=== PATIENT | male | born 1950 | race Caucasian/White ===

== ENCOUNTER 2016-10-03 00:40 | Emergency (ER) | payer BC, OTHER ==
[~2016-10-03] VITALS: Ht 167.6 cm; Wt 63.0 kg
[2016-10-03 02:02] VITALS: BP 118/76
== END 2016-10-03 02:44 | disposition home or self-care (01) ==
LOC: ED 02:38
DX: S49.91XA Unspecified injury of right shoulder and upper arm, initial encounter (principal); F10.120 Alcohol abuse with intoxication, uncomplicated; Y92.89 Other specified places as the place of occurrence of the external cause; Y93.89 Activity, other specified; Y99.8 Other external cause status; W19.XXXA Unspecified fall, initial encounter
CPT/HCPCS: 70450; 99284

== ENCOUNTER 2016-11-28 08:36 | Emergency (ER) | payer OTHER ==
[~2016-11-28] VITALS: Ht 167.6 cm; Wt 60.3 kg
[2016-11-28 08:38] VITALS: BP 102/65
[2016-11-28] MEDS ORDERED: FAMOTIDINE 20 MG TABLET PO ONE (10:00)
[2016-11-28] MEDS ORDERED: PERMETHRIN CRM 5%, 60GM TP ONE (10:00)
[2016-11-28] MEDS ORDERED: FAMOTIDINE 20 MG TABLET ONE (10:08)
[2016-11-28] MEDS ORDERED: PERMETHRIN CRM 5%, 60GM ONE (10:11)
== END 2016-11-28 11:27 | disposition home or self-care (01) ==
LOC: ED 09:15
DX: R21 Rash and other nonspecific skin eruption (principal); L03.90 Cellulitis, unspecified; Z59.0 Homelessness
CPT/HCPCS: 99284; Q0177

== ENCOUNTER 2016-11-30 22:44 | Emergency (ER) | payer OTHER ==
[~2016-11-30] VITALS: Ht 167.6 cm; Wt 70.0 kg
[2016-11-30] MEDS ORDERED: LIDOCAINE 1%, 20ML SQ ONE (23:00)
[2016-11-30] MEDS ORDERED: DIPH,PERTUSS(ACELL),TET VAC/PF 0.5 ML IM-VACC ONE ×2 (23:00→23:10)
[2016-11-30] MEDS ORDERED: LIDOCAINE 1%, 20ML ONE (23:10)
[2016-12-01 03:00] VITALS: BP 121/82
== END 2016-12-01 03:02 | disposition home or self-care (01) ==
LOC: ED 23:19
DX: S12.301A Unspecified nondisplaced fracture of fourth cervical vertebra, initial encounter for closed fracture (principal); S01.91XA Laceration without foreign body of unspecified part of head, initial encounter; F10.129 Alcohol abuse with intoxication, unspecified; Z87.891 Personal history of nicotine dependence; W01.0XXA Fall on same level from slipping, tripping and stumbling without subsequent striking against object, initial encounter; Y93.01 Activity, walking, marching and hiking; Y92.89 Other specified places as the place of occurrence of the external cause; Y99.8 Other external cause status
CPT/HCPCS: 12014; 70450; 72125; 90471; 90715

== ENCOUNTER 2016-12-04 19:16 | Inpatient (IN) | payer BC, MEDICARE, OTHER ==
[~2016-12-04] VITALS: Ht 167.6 cm; Wt 57.8 kg
[2016-12-04] MEDS ORDERED: CEPH-368 PO (19:35)
[2016-12-04] MEDS ORDERED: SODIUM CHLORIDE FLUSH 10ML SYR IVF ONE (20:00)
[2016-12-04] MEDS ORDERED: CEFAZOLIN PMX 1GM/50ML 50 ML IV ONE (20:00)
[2016-12-04] MEDS ORDERED: DIPHENHYDRAMINE 50 MG/ML, 1ML IVPush ONE (20:00)
[2016-12-04 20:44] LABS: HEMATOCRIT 26.7 % (39.2-51.8); HEMOGLOBIN 8.7 g/dL (13.7-18.0); WHITE BLOOD COUNT 11.1 x10^3/uL (3.4-10)
[2016-12-04 20:56] LABS: ASPARTATE AMINO TRANSFERASE 11 U/L (15-37); BLOOD UREA NITROGEN 10 mg/dL (7-18)
[2016-12-04] MEDS ORDERED: DIPHENHYDRAMINE 50 MG/ML, 1ML ONE (21:03)
[2016-12-04] MEDS ORDERED: DIPH,PERTUSS(ACELL),TET VAC/PF 0.5 ML IM-VACC ONE (21:03)
[2016-12-04] MEDS ORDERED: CEFAZOLIN PMX 1GM/50ML 50 ML ONE (21:03)
[2016-12-04] MEDS: DIPH,PERTUSS(ACELL),TET VAC/PF 0.5 ML IM-VACC ONE ×2 (21:16→21:19)
[2016-12-04] MEDS ORDERED: ENALAPRILAT 1.25 MG/ML, 2ML IVPush PRN (22:30)
[2016-12-04] MEDS ORDERED: TEMAZEPAM 15 MG CAPSULE PO PRN (22:30)
[2016-12-04] MEDS ORDERED: ONDANSETRON 2MG/ML, 2ML IVPush PRN (22:30)
[2016-12-04] MEDS ORDERED: ACETAMINOPHEN 325 MG TABLET PO PRN (22:30)
[2016-12-04] MEDS ORDERED: CEFAZOLIN 1,000 MG IM SCH (22:30)
[2016-12-04 23:15] VITALS: BP 145/78
[2016-12-05 02:00] VITALS: BP 112/70
[2016-12-05] MEDS: HEPARIN 5,000 UNITS/ML, 1ML SQ SCH ×3 (02:13→18:22)
[2016-12-05] MEDS: CEFAZOLIN PMX 1GM/50ML 50 ML IV SCH ×3 (02:49→19:47)
[2016-12-05 05:45] LABS: HEMATOCRIT 25.6 % (39.2-51.8); HEMOGLOBIN 8.3 g/dL (13.7-18.0); WHITE BLOOD COUNT 9.3 x10^3/uL (3.4-10)
[2016-12-05 05:46] LABS: BLOOD UREA NITROGEN 7 mg/dL (7-18)
[2016-12-05] MEDS ORDERED: CEFAZOLIN 1,000 MG IVPB SCH (06:30)
[2016-12-05] MEDS ORDERED: CEFAZOLIN 1,000 MG IV SCH (06:30)
[2016-12-05 08:16] VITALS: BP 116/69
[2016-12-05] MEDS: DIPHENHYDRAMINE 25 MG CAPSULE PO PRN ×2 (10:24→21:15)
[2016-12-05 12:10] VITALS: BP 126/70
[2016-12-05 20:04] VITALS: BP 98/60
[2016-12-05] MEDS ORDERED: ONDANSETRON 2MG/ML, 2ML IVPush PRN (22:00)
[2016-12-05] MEDS ORDERED: ENALAPRILAT 1.25 MG/ML, 2ML IVPush PRN (22:00)
[2016-12-05] MEDS ORDERED: ACETAMINOPHEN 325 MG TABLET PO PRN (22:00)
[2016-12-06] MEDS: CEFAZOLIN PMX 1GM/50ML 50 ML IV SCH ×3 (03:04→20:22)
[2016-12-06] MEDS: HEPARIN 5,000 UNITS/ML, 1ML SQ SCH ×3 (03:05→20:22)
[2016-12-06 03:10] VITALS: BP 104/59
[2016-12-06 07:55] VITALS: BP 116/70
[2016-12-06] MEDS: DIPHENHYDRAMINE 25 MG CAPSULE PO PRN ×2 (10:44→21:50)
[2016-12-06 14:27] VITALS: BP 116/72
[2016-12-06 19:01] VITALS: BP 112/69
[2016-12-06] MEDS: FAMOTIDINE 20 MG TABLET PO SCH (20:22)
[2016-12-07] MEDS: CEFAZOLIN PMX 1GM/50ML 50 ML IV SCH ×3 (03:34→19:47)
[2016-12-07 03:54] VITALS: BP 103/61
[2016-12-07] MEDS: HEPARIN 5,000 UNITS/ML, 1ML SQ SCH ×3 (04:30→20:01)
[2016-12-07 07:48] VITALS: BP 124/77
[2016-12-07] MEDS: FAMOTIDINE 20 MG TABLET PO SCH ×2 (08:38→20:01)
[2016-12-07] MEDS: DIPHENHYDRAMINE 25 MG CAPSULE PO PRN ×2 (08:38→20:01)
[2016-12-07 13:22] VITALS: BP 117/70
[2016-12-07 19:58] VITALS: BP 118/71
[2016-12-08 01:29] VITALS: BP 121/71
[2016-12-08] MEDS: CEFAZOLIN PMX 1GM/50ML 50 ML IV SCH ×3 (03:18→18:28)
[2016-12-08] MEDS: HEPARIN 5,000 UNITS/ML, 1ML SQ SCH ×3 (05:24→19:49)
[2016-12-08 07:49] VITALS: BP 123/72
[2016-12-08] MEDS: FAMOTIDINE 20 MG TABLET PO SCH ×2 (08:58→19:49)
[2016-12-08] MEDS: DIPHENHYDRAMINE 25 MG CAPSULE PO PRN ×2 (12:29→19:48)
[2016-12-08 13:51] VITALS: BP 137/88
[2016-12-08 20:56] VITALS: BP 118/74
[2016-12-09] MEDS: CEFAZOLIN PMX 1GM/50ML 50 ML IV SCH ×3 (02:31→18:11)
[2016-12-09 02:41] VITALS: BP 132/74
[2016-12-09] MEDS: DIPHENHYDRAMINE 25 MG CAPSULE PO PRN ×2 (04:07→18:10)
[2016-12-09] MEDS: HEPARIN 5,000 UNITS/ML, 1ML SQ SCH ×3 (04:07→19:17)
[2016-12-09] MEDS: FAMOTIDINE 20 MG TABLET PO SCH ×2 (09:44→19:17)
[2016-12-09 10:49] VITALS: BP 120/70
[2016-12-09 15:18] VITALS: BP 135/79
[2016-12-09 19:36] VITALS: BP 129/83
[2016-12-10] MEDS: DIPHENHYDRAMINE 25 MG CAPSULE PO PRN ×2 (00:19→20:04)
[2016-12-10 01:23] VITALS: BP 146/71
[2016-12-10] MEDS: CEFAZOLIN PMX 1GM/50ML 50 ML IV SCH ×3 (02:53→20:04)
[2016-12-10] MEDS: HEPARIN 5,000 UNITS/ML, 1ML SQ SCH ×3 (04:40→20:04)
[2016-12-10 06:38] VITALS: BP 128/72
[2016-12-10] MEDS: FAMOTIDINE 20 MG TABLET PO SCH ×2 (09:19→20:04)
[2016-12-10 16:00] VITALS: BP 134/79
[2016-12-10 19:16] VITALS: BP 107/65
[2016-12-11 01:03] VITALS: BP 115/66
[2016-12-11] MEDS: CEFAZOLIN PMX 1GM/50ML 50 ML IV SCH ×3 (03:09→19:43)
[2016-12-11] MEDS: HEPARIN 5,000 UNITS/ML, 1ML SQ SCH ×3 (04:37→19:43)
[2016-12-11] MEDS: DIPHENHYDRAMINE 25 MG CAPSULE PO PRN ×3 (05:36→19:43)
[2016-12-11 08:00] VITALS: BP 126/71
[2016-12-11] MEDS: FAMOTIDINE 20 MG TABLET PO SCH ×2 (08:53→19:43)
[2016-12-11 14:50] VITALS: BP 118/69
[2016-12-11 21:07] VITALS: BP 109/70
[2016-12-12 01:31] VITALS: BP 119/64
[2016-12-12] MEDS: CEFAZOLIN PMX 1GM/50ML 50 ML IV SCH ×3 (03:22→19:28)
[2016-12-12] MEDS: HEPARIN 5,000 UNITS/ML, 1ML SQ SCH ×3 (03:22→19:29)
[2016-12-12] MEDS: DIPHENHYDRAMINE 25 MG CAPSULE PO PRN (03:22)
[2016-12-12 06:03] LABS: HEMATOCRIT 28.8 % (39.2-51.8); HEMOGLOBIN 9.3 g/dL (13.7-18.0); WHITE BLOOD COUNT 9.8 x10^3/uL (3.4-10)
[2016-12-12 06:25] VITALS: BP 110/68
[2016-12-12] MEDS: FAMOTIDINE 20 MG TABLET PO SCH ×2 (09:00→19:28)
[2016-12-12 14:30] VITALS: BP 117/73
[2016-12-12] MEDS ORDERED: ONDANSETRON 2MG/ML, 2ML IVPush PRN (19:00)
[2016-12-12] MEDS ORDERED: ENALAPRILAT 1.25 MG/ML, 2ML IVPush PRN (19:00)
[2016-12-12 20:23] VITALS: BP 106/63
[2016-12-12] MEDS: TEMAZEPAM 15 MG CAPSULE PO PRN (23:21)
[2016-12-12] MEDS: ACETAMINOPHEN 325 MG TABLET PO PRN (23:21)
[2016-12-13 03:36] VITALS: BP 113/67
[2016-12-13] MEDS: HEPARIN 5,000 UNITS/ML, 1ML SQ SCH ×3 (03:36→19:53)
[2016-12-13] MEDS: CEFAZOLIN PMX 1GM/50ML 50 ML IV SCH ×3 (03:36→18:46)
[2016-12-13 07:48] VITALS: BP 123/73
[2016-12-13] MEDS: DIPHENHYDRAMINE 25 MG CAPSULE PO PRN ×2 (10:01→19:51)
[2016-12-13] MEDS: FAMOTIDINE 20 MG TABLET PO SCH ×2 (10:01→19:52)
[2016-12-13 15:13] VITALS: BP 120/79
[2016-12-13] MEDS ORDERED: POLYETHYLENE GLYCOL 17 GM PACKET PO PRN (15:30)
[2016-12-13] MEDS ORDERED: BISACODYL 10 MG SUPP PR PRN (15:30)
[2016-12-13] MEDS: DOCUSATE 100 MG CAPSULE PO PRN (16:05)
[2016-12-13 19:40] VITALS: BP 110/72
[2016-12-13] MEDS: TEMAZEPAM 15 MG CAPSULE PO PRN (19:52)
[2016-12-14 01:00] VITALS: BP 121/73
[2016-12-14] MEDS: CEFAZOLIN PMX 1GM/50ML 50 ML IV SCH ×3 (02:37→18:42)
[2016-12-14] MEDS: DOCUSATE 100 MG CAPSULE PO PRN (02:37)
[2016-12-14] MEDS: HEPARIN 5,000 UNITS/ML, 1ML SQ SCH ×3 (06:21→21:46)
[2016-12-14 07:54] VITALS: BP 107/69
[2016-12-14] MEDS: DIPHENHYDRAMINE 25 MG CAPSULE PO PRN ×2 (10:32→17:24)
[2016-12-14] MEDS: FAMOTIDINE 20 MG TABLET PO SCH ×2 (10:34→21:45)
[2016-12-14 15:10] VITALS: BP 121/71
[2016-12-14] MEDS: ACETAMINOPHEN 325 MG TABLET PO PRN (17:24)
[2016-12-14 19:36] VITALS: BP 107/71
[2016-12-15 01:34] VITALS: BP 123/71
[2016-12-15] MEDS: DIPHENHYDRAMINE 25 MG CAPSULE PO PRN (02:01)
[2016-12-15] MEDS: CEFAZOLIN PMX 1GM/50ML 50 ML IV SCH ×3 (03:02→19:37)
[2016-12-15] MEDS: ACETAMINOPHEN 325 MG TABLET PO PRN (04:15)
[2016-12-15] MEDS: HEPARIN 5,000 UNITS/ML, 1ML SQ SCH ×3 (05:36→19:38)
[2016-12-15 05:43] LABS: HEMATOCRIT 27.2 % (39.2-51.8); HEMOGLOBIN 8.8 g/dL (13.7-18.0)
[2016-12-15 08:00] VITALS: BP 132/86
[2016-12-15] MEDS: FAMOTIDINE 20 MG TABLET PO SCH ×2 (11:14→19:37)
[2016-12-15 14:00] VITALS: BP 115/72
[2016-12-15 19:35] VITALS: BP 99/54
[2016-12-16 01:29] VITALS: BP 99/54
[2016-12-16] MEDS: CEFAZOLIN PMX 1GM/50ML 50 ML IV SCH (03:27)
[2016-12-16] MEDS: HEPARIN 5,000 UNITS/ML, 1ML SQ SCH (06:00)
[2016-12-16 07:30] VITALS: BP 121/76
[2016-12-16] MEDS: FAMOTIDINE 20 MG TABLET PO SCH (09:07)
[2016-12-16] MEDS ORDERED: POLY17PO5 PO (09:42)
[2016-12-16] MEDS ORDERED: DIPH25CA61 PO (09:42)
== END 2016-12-16 14:48 | disposition home or self-care (01) | DRG 602 ==
LOC: ED 19:38 → EDIP 22:33 → 3NE 23:33
PROVIDERS: ADMIT Internal Medicine; ATTEND Family Medicine
DX: L03.115 Cellulitis of right lower limb (principal); E43 Unspecified severe protein-calorie malnutrition; R62.7 Adult failure to thrive; D50.9 Iron deficiency anemia, unspecified; F10.20 Alcohol dependence, uncomplicated; D47.3 Essential (hemorrhagic) thrombocythemia; L03.116 Cellulitis of left lower limb; L30.8 Other specified dermatitis; Z59.0 Homelessness; Z68.20 Body mass index [BMI] 20.0-20.9, adult
CPT/HCPCS: 36415; 80048; 80053; 82607; 82746; 83540; 83550; 83605; 83735; 85025; 85045; 85651; 86850; 86900; 87040; 90715; 99285; J0690; J1644; J1200; J7512; Q0163

== ENCOUNTER 2017-01-24 19:30 | Emergency (ER) | payer MEDICARE ==
[~2017-01-24] VITALS: Ht 162.6 cm; Wt 65.0 kg
[~2017-01-24 19:30] MED LIST: CEPH-368 PO; DIPH25CA61 PO; POLY17PO5 PO
[2017-01-24] MEDS ORDERED: LIDOCAINE 1%, 20ML ONE (19:49)
[2017-01-24] MEDS ORDERED: DIPH,PERTUSS(ACELL),TET VAC/PF 0.5 ML IM-VACC ONE ×2 (19:49→20:00)
[2017-01-24] MEDS ORDERED: LIDOCAINE 1%, 20ML INFIL ONE (20:00)
[2017-01-24] MEDS ORDERED: BACITRACIN ZINC OINT 500U/GM, 0.9 GM ONE (21:53)
[2017-01-24 22:04] VITALS: BP 122/78
== END 2017-01-24 22:07 | disposition home or self-care (01) ==
LOC: ED 20:59
DX: S01.81XA Laceration without foreign body of other part of head, initial encounter (principal); Z59.0 Homelessness; Z87.891 Personal history of nicotine dependence; W01.0XXA Fall on same level from slipping, tripping and stumbling without subsequent striking against object, initial encounter; Y93.89 Activity, other specified; Y92.89 Other specified places as the place of occurrence of the external cause; Y99.8 Other external cause status
CPT/HCPCS: 13132; 70450; 90471; 90715

== ENCOUNTER 2017-02-02 08:03 | Inpatient (IN) | payer MEDICARE, OTHER ==
[~2017-02-02] VITALS: Ht 167.6 cm; Wt 52.7 kg
[2017-02-02] MEDS ORDERED: SODIUM CHLORIDE 0.9% 1,000 ML IV ONE (08:27)
[2017-02-02] MEDS ORDERED: ALBUTEROL/IPRATROPIUM 2.5MG/0.5MG, 3 ML NPPB ONE (08:30)
[2017-02-02] MEDS ORDERED: SODIUM CHLORIDE 0.9% 1,000ML IVBOLUS ONE (08:30)
[2017-02-02] MEDS ORDERED: ALBUTEROL/IPRATROPIUM 2.5MG/0.5MG, 3 ML ONE (08:54)
[2017-02-02 09:11] LABS: HEMATOCRIT 27.8 % (39.2-51.8); WHITE BLOOD COUNT 23.6 x10^3/uL (3.4-10)
[2017-02-02 09:28] LABS: BLOOD UREA NITROGEN 22 mg/dL (7-18)
[2017-02-02 10:21] LABS: DIFF TOTAL CELLS COUNTED 100 CELL DIFF
[2017-02-02 10:26] LABS: ANISOCYTOSIS 1+; MICROCYTOSIS 1+
[2017-02-02 10:30] LABS: IS PT STATUS REG ER OR PRE ER? YES
[2017-02-02] MEDS ORDERED: VANCOMYCIN PER PHARMACY MC ONE (10:30)
[2017-02-02] MEDS ORDERED: CEFTRIAXONE PMX 1GM/50ML 50 ML IV ONE (10:30)
[2017-02-02] MEDS ORDERED: VANCOMYCIN PMX 1GM/200ML 200 ML IVPB ONE (10:30)
[2017-02-02] MEDS ORDERED: CEFTRIAXONE PMX 1GM/50ML 50 ML ONE (10:31)
[2017-02-02 10:33] LABS: VERIFY COUNTS? YES
[2017-02-02] MEDS ORDERED: SODIUM CHLORIDE 0.9%, 500ML IVBOLUS ONE (11:00)
[2017-02-02 11:45] VITALS: BP 126/86
[2017-02-02] MEDS ORDERED: ENALAPRILAT 1.25 MG/ML, 2ML IVPush PRN (14:00)
[2017-02-02] MEDS ORDERED: LABETALOL 5MG/ML, 20ML IVPush PRN (14:00)
[2017-02-02] MEDS ORDERED: DOCUSATE 100 MG CAPSULE PO PRN (14:00)
[2017-02-02] MEDS ORDERED: ONDANSETRON 2MG/ML, 2ML IVPush PRN (14:00)
[2017-02-02] MEDS ORDERED: BISACODYL 10 MG SUPP PR PRN (14:00)
[2017-02-02] MEDS ORDERED: POLYETHYLENE GLYCOL 17 GM PACKET PO PRN (14:00)
[2017-02-02] MEDS ORDERED: VANCOMYCIN PER PHARMACY MC PRN (14:30)
[2017-02-02] MEDS ORDERED: LORazepam 1MG TABLET PO PRN (15:00)
[2017-02-02] MEDS ORDERED: POTASSIUM CHLORIDE 20 MEQ PACKET PO ONE (15:00)
[2017-02-02] MEDS ORDERED: PHARMACOKINETIC CONSULTATION MC ONE (15:00)
[2017-02-02] MEDS ORDERED: PHARMACOKINETIC MONITORING MC PRN (15:00)
[2017-02-02] MEDS: NS + 20MEQ KCL 1,000 ML IV SCH (15:40)
[2017-02-02] MEDS: PIPERACILLIN/TAZO/PMX 4.5GM 100 ML IV SCH ×2 (15:40→21:46)
[2017-02-02] MEDS: ENOXAPARIN 40 MG/0.4 ML SQ SCH (17:59)
[2017-02-02] MEDS: ALBUTEROL/IPRATROPIUM 2.5MG/0.5MG, 3 ML NPPB SCH (19:45)
[2017-02-02 21:05] VITALS: BP 100/59
[2017-02-02] MEDS: PIPERONYL BUTOXIDE/PYRETHRINS SHAMPOO TP SCH (22:54)
[2017-02-03 04:05] VITALS: BP 91/54
[2017-02-03] MEDS: PIPERACILLIN/TAZO/PMX 4.5GM 100 ML IV SCH ×4 (04:32→22:50)
[2017-02-03] MEDS: NS + 20MEQ KCL 1,000 ML IV SCH ×2 (04:32→19:39)
[2017-02-03] MEDS: DIPHENHYDRAMINE 25 MG CAPSULE PO PRN (04:35)
[2017-02-03 05:26] LABS: HEMOGLOBIN 7.4 g/dL (13.7-18.0); WHITE BLOOD COUNT 19.6 x10^3/uL (3.4-10)
[2017-02-03 05:44] LABS: ASPARTATE AMINO TRANSFERASE 30 U/L (15-37); BLOOD UREA NITROGEN 18 mg/dL (7-18)
[2017-02-03] MEDS: ASPIRIN 325 MG TABLET PO SCH (06:06)
[2017-02-03] MEDS ORDERED: VANCOMYCIN 1,300 MG in SODIUM CHLORIDE 0.9% 250 ML IV SCH (07:00)
[2017-02-03] MEDS: ALBUTEROL/IPRATROPIUM 2.5MG/0.5MG, 3 ML NPPB SCH ×4 (07:00→18:53)
[2017-02-03 09:15] VITALS: BP 95/61
[2017-02-03] MEDS: ACETAMINOPHEN 325 MG TABLET PO PRN (10:04)
[2017-02-03] MEDS: ENOXAPARIN 40 MG/0.4 ML SQ SCH (14:00)
[2017-02-03 14:40] VITALS: BP 91/69
[2017-02-03 16:09] LABS: HEMATOCRIT 23.4 % (39.2-51.8); HEMOGLOBIN 7.4 g/dL (13.7-18.0)
[2017-02-03 19:24] VITALS: BP 93/58
[2017-02-03 21:07] LABS: HEMATOCRIT 21.8 % (39.2-51.8)
[2017-02-04] VITALS (10 sets, daily range): BP systolic 90–117; BP diastolic 60–67
[2017-02-04 02:29] LABS: DAU SCREEN DISCLAIMER
[2017-02-04] MEDS: HYDROcodone/APAP 5/325 TABLET PO PRN ×2 (02:30→09:54)
[2017-02-04] MEDS: PIPERACILLIN/TAZO/PMX 4.5GM 100 ML IV SCH ×4 (04:57→23:06)
[2017-02-04] MEDS: ASPIRIN 325 MG TABLET PO SCH (04:59)
[2017-02-04] MEDS: ALBUTEROL/IPRATROPIUM 2.5MG/0.5MG, 3 ML NPPB SCH ×4 (07:00→19:10)
[2017-02-04 07:08] LABS: HEMATOCRIT 28.5 % (39.2-51.8); HEMOGLOBIN 9.3 g/dL (13.7-18.0); WHITE BLOOD COUNT 15.9 x10^3/uL (3.4-10)
[2017-02-04 07:10] LABS: BLOOD UREA NITROGEN 10 mg/dL (7-18)
[2017-02-04] MEDS: THIAMINE 100MG TABLET PO SCH (08:54)
[2017-02-04] MEDS: FOLIC ACID 1 MG TABLET PO SCH (08:54)
[2017-02-04] MEDS: VANCOMYCIN 1,200 MG in SODIUM CHLORIDE 0.9% 250 ML IV SCH (09:05)
[2017-02-04 11:10] LABS: HEMATOCRIT 30.9 % (39.2-51.8); HEMOGLOBIN 9.9 g/dL (13.7-18.0)
[2017-02-04] MEDS: NS + 20MEQ KCL 1,000 ML IV SCH (15:46)
[2017-02-04 16:06] LABS: HEMATOCRIT 29.8 % (39.2-51.8); HEMOGLOBIN 9.6 g/dL (13.7-18.0)
[2017-02-04] MEDS ORDERED: IRON DEXTRAN COMPLEX 1,300 MG in SODIUM CHLORIDE 0.9% 250 ML IV ONE ×3 (17:30→21:00)
[2017-02-04] MEDS ORDERED: IRON DEXTRAN COMPLEX 25 MG in SODIUM CHLORIDE 0.9% 50 ML IV ONE (17:30)
[2017-02-04] MEDS ORDERED: IRON DEXTRAN IV PER PHARMACY IV PRN (17:30)
[2017-02-04] MEDS: ACETAMINOPHEN 325 MG TABLET PO PRN (20:53)
[2017-02-04] MEDS ORDERED: EPINEPHRINE 1 MG/ML, 1ML SQ PRN (21:00)
[2017-02-04 21:44] LABS: HEMATOCRIT 29.7 % (39.2-51.8); HEMOGLOBIN 9.4 g/dL (13.7-18.0)
[2017-02-05 02:43] VITALS: BP 110/64
[2017-02-05 04:30] LABS: HEMATOCRIT 28.2 % (39.2-51.8); HEMOGLOBIN 9.2 g/dL (13.7-18.0); WHITE BLOOD COUNT 13.3 x10^3/uL (3.4-10)
[2017-02-05 04:40] LABS: BLOOD UREA NITROGEN 7 mg/dL (7-18)
[2017-02-05] MEDS: PIPERACILLIN/TAZO/PMX 4.5GM 100 ML IV SCH ×4 (06:16→22:53)
[2017-02-05] MEDS: ASPIRIN 325 MG TABLET PO SCH (06:16)
[2017-02-05 06:45] VITALS: BP 126/81
[2017-02-05] MEDS: ALBUTEROL/IPRATROPIUM 2.5MG/0.5MG, 3 ML NPPB SCH ×4 (07:04→19:21)
[2017-02-05] MEDS: FOLIC ACID 1 MG TABLET PO SCH (09:00)
[2017-02-05] MEDS: THIAMINE 100MG TABLET PO SCH (09:00)
[2017-02-05 09:06] VITALS: BP 115/67
[2017-02-05] MEDS: VANCOMYCIN 1,200 MG in SODIUM CHLORIDE 0.9% 250 ML IV SCH (09:10)
[2017-02-05] MEDS: NS + 20MEQ KCL 1,000 ML IV SCH ×2 (10:17→19:55)
[2017-02-05 11:50] VITALS: BP 127/78
[2017-02-05 12:21] VITALS: BP 126/75
[2017-02-05 16:42] LABS: OCCBLD OBC PASS
[2017-02-05 19:45] VITALS: BP 118/70
[2017-02-05] MEDS: DIPHENHYDRAMINE 25 MG CAPSULE PO PRN (21:38)
[2017-02-06 05:09] LABS: HEMATOCRIT 28.6 % (39.2-51.8); HEMOGLOBIN 9.3 g/dL (13.7-18.0); WHITE BLOOD COUNT 11.2 x10^3/uL (3.4-10)
[2017-02-06] MEDS: ASPIRIN 325 MG TABLET PO SCH (05:09)
[2017-02-06] MEDS: NS + 20MEQ KCL 1,000 ML IV SCH (05:10)
[2017-02-06] MEDS: PIPERACILLIN/TAZO/PMX 4.5GM 100 ML IV SCH ×4 (05:10→23:13)
[2017-02-06 05:15] VITALS: BP 122/80
[2017-02-06 05:20] LABS: BLOOD UREA NITROGEN 4 mg/dL (7-18)
[2017-02-06 06:46] VITALS: BP 130/75
[2017-02-06] MEDS: SODIUM BICARBONATE 4.2%, 5ML NPPB SCH ×3 (06:53→14:47)
[2017-02-06] MEDS: ALBUTEROL/IPRATROPIUM 2.5MG/0.5MG, 3 ML NPPB SCH ×4 (07:00→18:48)
[2017-02-06] MEDS ORDERED: SODIUM BICARBONATE 4.2%, 5ML NPPB SCH (07:30)
[2017-02-06] MEDS: THIAMINE 100MG TABLET PO SCH (08:52)
[2017-02-06] MEDS: VANCOMYCIN 1,200 MG in SODIUM CHLORIDE 0.9% 250 ML IV SCH ×2 (08:52→23:11)
[2017-02-06] MEDS: FOLIC ACID 1 MG TABLET PO SCH (08:52)
[2017-02-06] MEDS: ENOXAPARIN 40 MG/0.4 ML SQ SCH (11:23)
[2017-02-06 12:22] VITALS: BP 133/76
[2017-02-06 19:08] VITALS: BP 123/73
[2017-02-06] MEDS ORDERED: ENALAPRILAT 1.25 MG/ML, 2ML IVPush PRN (20:30)
[2017-02-06] MEDS ORDERED: LABETALOL 5MG/ML, 20ML IVPush PRN (20:30)
[2017-02-06] MEDS ORDERED: ACETAMINOPHEN 325 MG TABLET PO PRN (21:00)
[2017-02-06] MEDS ORDERED: POLYETHYLENE GLYCOL 17 GM PACKET PO PRN (21:00)
[2017-02-06] MEDS ORDERED: DIPHENHYDRAMINE 25 MG CAPSULE PO PRN (21:00)
[2017-02-06] MEDS ORDERED: HYDROcodone/APAP 5/325 TABLET PO PRN (21:00)
[2017-02-06] MEDS ORDERED: DOCUSATE 100 MG CAPSULE PO PRN (21:00)
[2017-02-06] MEDS ORDERED: LORazepam 1MG TABLET PO PRN (21:00)
[2017-02-06] MEDS ORDERED: ONDANSETRON 2MG/ML, 2ML IVPush PRN (21:00)
[2017-02-06] MEDS ORDERED: BISACODYL 10 MG SUPP PR PRN (21:00)
[2017-02-07] MEDS: VANCOMYCIN 1,200 MG in SODIUM CHLORIDE 0.9% 250 ML IV SCH ×2 (00:24→17:57)
[2017-02-07 01:58] VITALS: BP 122/67
[2017-02-07] MEDS: ASPIRIN 325 MG TABLET PO SCH (05:19)
[2017-02-07] MEDS: PIPERACILLIN/TAZO/PMX 4.5GM 100 ML IV SCH ×4 (05:21→23:25)
[2017-02-07 05:29] LABS: BLOOD UREA NITROGEN 3 mg/dL (7-18)
[2017-02-07 05:32] LABS: HEMATOCRIT 28.8 % (39.2-51.8); HEMOGLOBIN 9.3 g/dL (13.7-18.0); WHITE BLOOD COUNT 8.5 x10^3/uL (3.4-10)
[2017-02-07] MEDS ORDERED: OMNIPAQUE 350 MG/ML, 75ML BOTTLE ONE (06:39)
[2017-02-07] MEDS: ALBUTEROL/IPRATROPIUM 2.5MG/0.5MG, 3 ML NPPB SCH ×4 (06:53→19:15)
[2017-02-07] MEDS: SODIUM BICARBONATE 4.2%, 5ML NPPB SCH ×2 (07:00→11:00)
[2017-02-07 07:06] VITALS: BP 134/80
[2017-02-07] MEDS: FOLIC ACID 1 MG TABLET PO SCH (08:52)
[2017-02-07] MEDS: THIAMINE 100MG TABLET PO SCH (08:52)
[2017-02-07] MEDS: ENOXAPARIN 40 MG/0.4 ML SQ SCH (10:35)
[2017-02-07] MEDS ORDERED: MIDAZOLAM 1 MG/ML, 5ML ONE (11:13)
[2017-02-07] MEDS ORDERED: FENTANYL PF 100 MCG/2ML ONE (11:59)
[2017-02-07] MEDS ORDERED: LIDOCAINE GEL 2%, 5ML ONE (12:00)
[2017-02-07] MEDS ORDERED: LIDOCAINE 2%, 20ML ONE (12:00)
[2017-02-07] MEDS ORDERED: LIDOCAINE 4% TOPICAL SOLUTION 50 ML ONE (12:00)
[2017-02-07] MEDS ORDERED: LIDOCAINE 1%, 20ML ONE (13:31)
[2017-02-07 19:33] VITALS: BP 111/69
[2017-02-07] MEDS: FAMOTIDINE 20 MG/2 ML IVPush SCH (23:25)
[2017-02-08 01:56] VITALS: BP 119/73
[2017-02-08 04:56] LABS: HEMATOCRIT 30.9 % (39.2-51.8); WHITE BLOOD COUNT 9.8 x10^3/uL (3.4-10)
[2017-02-08] MEDS: PIPERACILLIN/TAZO/PMX 4.5GM 100 ML IV SCH ×4 (04:59→23:30)
[2017-02-08] MEDS: ASPIRIN 325 MG TABLET PO SCH (04:59)
[2017-02-08 05:01] LABS: BLOOD UREA NITROGEN 4 mg/dL (7-18)
[2017-02-08 06:37] VITALS: BP 129/69
[2017-02-08] MEDS: ALBUTEROL/IPRATROPIUM 2.5MG/0.5MG, 3 ML NPPB SCH ×4 (07:20→20:15)
[2017-02-08] MEDS: THIAMINE 100MG TABLET PO SCH (09:00)
[2017-02-08] MEDS: FOLIC ACID 1 MG TABLET PO SCH (09:00)
[2017-02-08] MEDS: ENOXAPARIN 40 MG/0.4 ML SQ SCH (09:56)
[2017-02-08] MEDS: FAMOTIDINE 20 MG/2 ML IVPush SCH ×2 (10:07→21:55)
[2017-02-08] MEDS: VANCOMYCIN 1,200 MG in SODIUM CHLORIDE 0.9% 250 ML IV SCH (12:13)
[2017-02-08 13:51] VITALS: BP 114/74
[2017-02-08 19:49] VITALS: BP 128/80
[2017-02-09 02:05] VITALS: BP 127/67
[2017-02-09] MEDS: PIPERACILLIN/TAZO/PMX 4.5GM 100 ML IV SCH ×4 (05:08→23:26)
[2017-02-09] MEDS: VANCOMYCIN 1,200 MG in SODIUM CHLORIDE 0.9% 250 ML IV SCH (05:54)
[2017-02-09 06:45] VITALS: BP 130/72
[2017-02-09] MEDS: ALBUTEROL/IPRATROPIUM 2.5MG/0.5MG, 3 ML NPPB SCH ×4 (08:38→17:53)
[2017-02-09] MEDS: FAMOTIDINE 20 MG/2 ML IVPush SCH ×2 (10:06→21:39)
[2017-02-09] MEDS: ASPIRIN 325 MG TABLET PO SCH (10:07)
[2017-02-09] MEDS: THIAMINE 100MG TABLET PO SCH (10:07)
[2017-02-09] MEDS: FOLIC ACID 1 MG TABLET PO SCH (10:07)
[2017-02-09 13:49] VITALS: BP 108/71
[2017-02-09] MEDS: PIPERONYL BUTOXIDE/PYRETHRINS SHAMPOO TP SCH (18:57)
[2017-02-09 18:58] VITALS: BP 112/74
[2017-02-10] MEDS: VANCOMYCIN 1,200 MG in SODIUM CHLORIDE 0.9% 250 ML IV SCH (00:05)
[2017-02-10 01:08] VITALS: BP 107/68
[2017-02-10] MEDS: PIPERACILLIN/TAZO/PMX 4.5GM 100 ML IV SCH ×4 (05:32→23:30)
[2017-02-10] MEDS: ASPIRIN 325 MG TABLET PO SCH (05:48)
[2017-02-10] MEDS: ALBUTEROL/IPRATROPIUM 2.5MG/0.5MG, 3 ML NPPB SCH ×4 (07:00→19:05)
[2017-02-10] MEDS: THIAMINE 100MG TABLET PO SCH (08:12)
[2017-02-10] MEDS: FOLIC ACID 1 MG TABLET PO SCH (08:12)
[2017-02-10] MEDS: FAMOTIDINE 20 MG/2 ML IVPush SCH ×2 (08:12→23:00)
[2017-02-10 08:33] VITALS: BP 109/70
[2017-02-10 12:45] VITALS: BP 121/74
[2017-02-10] MEDS ORDERED: VANCOMYCIN PMX 1GM/200ML 200 ML IV ONE (18:00)
[2017-02-10 20:00] VITALS: BP 106/71
[2017-02-11 01:27] VITALS: BP 124/78
[2017-02-11] MEDS: PIPERACILLIN/TAZO/PMX 4.5GM 100 ML IV SCH ×4 (05:23→23:34)
[2017-02-11] MEDS: ASPIRIN 325 MG TABLET PO SCH (05:23)
[2017-02-11 06:34] VITALS: BP 116/67
[2017-02-11] MEDS: ALBUTEROL/IPRATROPIUM 2.5MG/0.5MG, 3 ML NPPB SCH ×4 (07:00→19:15)
[2017-02-11] MEDS: FOLIC ACID 1 MG TABLET PO SCH (09:50)
[2017-02-11] MEDS: FAMOTIDINE 20 MG/2 ML IVPush SCH ×2 (09:50→19:46)
[2017-02-11] MEDS: THIAMINE 100MG TABLET PO SCH (09:50)
[2017-02-11 12:32] VITALS: BP 114/71
[2017-02-11] MEDS: VANCOMYCIN PMX 1GM/200ML 200 ML IV SCH (18:27)
[2017-02-11 18:55] VITALS: BP 117/71
[2017-02-12 00:38] VITALS: BP 114/74
[2017-02-12] MEDS: PIPERACILLIN/TAZO/PMX 4.5GM 100 ML IV SCH ×4 (05:15→23:06)
[2017-02-12] MEDS: ASPIRIN 325 MG TABLET PO SCH (05:15)
[2017-02-12 05:44] LABS: HEMATOCRIT 33.3 % (39.2-51.8); HEMOGLOBIN 10.7 g/dL (13.7-18.0)
[2017-02-12 05:59] LABS: BLOOD UREA NITROGEN 4 mg/dL (7-18)
[2017-02-12] MEDS ORDERED: MAGNESIUM SULFATE PMX 2GM/50ML 50 ML IV ONE (06:30)
[2017-02-12] MEDS: ALBUTEROL/IPRATROPIUM 2.5MG/0.5MG, 3 ML NPPB SCH ×3 (06:50→18:36)
[2017-02-12 07:31] VITALS: BP 107/65
[2017-02-12] MEDS: FOLIC ACID 1 MG TABLET PO SCH (09:13)
[2017-02-12] MEDS: THIAMINE 100MG TABLET PO SCH (09:13)
[2017-02-12] MEDS: FAMOTIDINE 20 MG/2 ML IVPush SCH ×2 (09:14→19:48)
[2017-02-12 13:02] VITALS: BP 103/70
[2017-02-12] MEDS: VANCOMYCIN PMX 1GM/200ML 200 ML IV SCH (17:56)
[2017-02-12 19:52] VITALS: BP 101/60
[2017-02-13 01:23] VITALS: BP 106/61
[2017-02-13] MEDS: PIPERACILLIN/TAZO/PMX 4.5GM 100 ML IV SCH ×4 (05:22→23:19)
[2017-02-13] MEDS: ASPIRIN 325 MG TABLET PO SCH (05:22)
[2017-02-13 06:50] VITALS: BP 107/70
[2017-02-13] MEDS: ALBUTEROL/IPRATROPIUM 2.5MG/0.5MG, 3 ML NPPB SCH ×4 (06:55→19:34)
[2017-02-13] MEDS: FAMOTIDINE 20 MG/2 ML IVPush SCH ×2 (09:33→20:51)
[2017-02-13] MEDS: FOLIC ACID 1 MG TABLET PO SCH (09:33)
[2017-02-13] MEDS: THIAMINE 100MG TABLET PO SCH (09:33)
[2017-02-13] MEDS: VANCOMYCIN PMX 1GM/200ML 200 ML IV SCH (12:01)
[2017-02-13 12:55] VITALS: BP 109/76
[2017-02-13 18:33] VITALS: BP 102/68
[2017-02-13] MEDS ORDERED: DIPHENHYDRAMINE 25 MG CAPSULE PO PRN (20:00)
[2017-02-13] MEDS ORDERED: LABETALOL 5MG/ML, 20ML IVPush PRN (20:00)
[2017-02-13] MEDS ORDERED: LORazepam 1MG TABLET PO PRN (20:00)
[2017-02-13] MEDS ORDERED: ENALAPRILAT 1.25 MG/ML, 2ML IVPush PRN (20:00)
[2017-02-13] MEDS ORDERED: BISACODYL 10 MG SUPP PR PRN (20:00)
[2017-02-13] MEDS ORDERED: DOCUSATE 100 MG CAPSULE PO PRN (20:00)
[2017-02-13] MEDS ORDERED: ONDANSETRON 2MG/ML, 2ML IVPush PRN (20:00)
[2017-02-13] MEDS ORDERED: ACETAMINOPHEN 325 MG TABLET PO PRN (20:00)
[2017-02-13] MEDS ORDERED: HYDROcodone/APAP 5/325 TABLET PO PRN (20:00)
[2017-02-14 00:42] VITALS: BP 110/74
[2017-02-14] MEDS: PIPERACILLIN/TAZO/PMX 4.5GM 100 ML IV SCH ×4 (05:45→23:34)
[2017-02-14] MEDS: ASPIRIN 325 MG TABLET PO SCH (06:27)
[2017-02-14] MEDS: VANCOMYCIN PMX 1GM/200ML 200 ML IV SCH (06:27)
[2017-02-14 07:12] LABS: BLOOD UREA NITROGEN 5 mg/dL (7-18)
[2017-02-14 07:52] VITALS: BP 121/75
[2017-02-14] MEDS: ALBUTEROL/IPRATROPIUM 2.5MG/0.5MG, 3 ML NPPB SCH ×2 (08:00→21:00)
[2017-02-14] MEDS: THIAMINE 100MG TABLET PO SCH (10:17)
[2017-02-14] MEDS: FAMOTIDINE 20 MG/2 ML IVPush SCH ×2 (10:17→20:54)
[2017-02-14] MEDS: FOLIC ACID 1 MG TABLET PO SCH (10:17)
[2017-02-14] MEDS: MULTIVITAMINS WITH IRON TABLET PO SCH (10:18)
[2017-02-14] MEDS: ZINC SULFATE 220 MG CAPSULE PO SCH (10:18)
[2017-02-14] MEDS: MAGNESIUM OXIDE 400 MG TABLET PO SCH (10:18)
[2017-02-14 12:43] VITALS: BP 100/70
[2017-02-14] MEDS: ASCORBIC ACID 500 MG TABLET PO SCH (17:36)
[2017-02-14 18:36] VITALS: BP 112/68
[2017-02-15] MEDS: VANCOMYCIN PMX 1GM/200ML 200 ML IV SCH ×2 (00:25→18:53)
[2017-02-15 03:50] VITALS: BP 119/81
[2017-02-15] MEDS: ASPIRIN 325 MG TABLET PO SCH (05:47)
[2017-02-15] MEDS: PIPERACILLIN/TAZO/PMX 4.5GM 100 ML IV SCH ×3 (05:47→18:11)
[2017-02-15 07:25] VITALS: BP 100/61
[2017-02-15] MEDS: ALBUTEROL/IPRATROPIUM 2.5MG/0.5MG, 3 ML NPPB SCH ×2 (07:45→20:35)
[2017-02-15] MEDS: ZINC SULFATE 220 MG CAPSULE PO SCH (08:55)
[2017-02-15] MEDS: BUDESONIDE 0.5 MG/2 ML INHA INH SCH ×2 (08:55→21:00)
[2017-02-15] MEDS: FOLIC ACID 1 MG TABLET PO SCH (08:55)
[2017-02-15] MEDS: ASCORBIC ACID 500 MG TABLET PO SCH ×2 (08:55→18:11)
[2017-02-15] MEDS: MULTIVITAMINS WITH IRON TABLET PO SCH (08:55)
[2017-02-15] MEDS: THIAMINE 100MG TABLET PO SCH (08:55)
[2017-02-15] MEDS: FAMOTIDINE 20 MG/2 ML IVPush SCH ×2 (08:55→20:24)
[2017-02-15] MEDS: MAGNESIUM OXIDE 400 MG TABLET PO SCH (08:55)
[2017-02-15 13:51] VITALS: BP 122/68
[2017-02-15 19:31] VITALS: BP 128/56
[2017-02-16] MEDS: PIPERACILLIN/TAZO/PMX 4.5GM 100 ML IV SCH ×3 (00:47→11:26)
[2017-02-16 03:52] VITALS: BP 105/66
[2017-02-16] MEDS: ASPIRIN 325 MG TABLET PO SCH (06:24)
[2017-02-16 07:12] VITALS: BP 99/66
[2017-02-16] MEDS: ASCORBIC ACID 500 MG TABLET PO SCH (07:53)
[2017-02-16] MEDS: THIAMINE 100MG TABLET PO SCH (07:53)
[2017-02-16] MEDS: ZINC SULFATE 220 MG CAPSULE PO SCH (07:53)
[2017-02-16] MEDS: FAMOTIDINE 20 MG/2 ML IVPush SCH (07:53)
[2017-02-16] MEDS: MAGNESIUM OXIDE 400 MG TABLET PO SCH (07:53)
[2017-02-16] MEDS: MULTIVITAMINS WITH IRON TABLET PO SCH (07:53)
[2017-02-16] MEDS: FOLIC ACID 1 MG TABLET PO SCH (07:53)
[2017-02-16] MEDS ORDERED: MULT1TAB81 PO (09:45)
[2017-02-16] MEDS ORDERED: ASCO500T6 PO (09:45)
[2017-02-16] MEDS ORDERED: IPRA3AMP NPPB (09:45)
[2017-02-16] MEDS ORDERED: DOCU-131 PO (09:45)
[2017-02-16] MEDS ORDERED: ACET325T14 PO (09:45)
[2017-02-16] MEDS ORDERED: BISA10SU65 PR (09:45)
[2017-02-16] MEDS ORDERED: THIA100T6 PO (09:45)
[2017-02-16] MEDS ORDERED: DIPH25CA61 PO (09:45)
[2017-02-16] MEDS ORDERED: ZINC220C5 PO (09:45)
[2017-02-16] MEDS ORDERED: FOLI-17 PO (09:45)
[2017-02-16] MEDS ORDERED: MAGN400T26 PO (09:45)
[2017-02-16] MEDS ORDERED: BUDE0.5A INH (09:45)
[2017-02-16] MEDS ORDERED: PNEUMOCOCCAL 23 VACCINE IM-VACC ONE (11:00)
[2017-02-16] MEDS: ALBUTEROL/IPRATROPIUM 2.5MG/0.5MG, 3 ML NPPB SCH (11:15)
[2017-02-16] MEDS: VANCOMYCIN PMX 1GM/200ML 200 ML IV SCH (11:26)
[2017-02-16] MEDS ORDERED: FLU VACC QS2017-18 (36MOS+) UP/PF 0.5 ML IM-VACC ONE (11:30)
== END 2017-02-16 14:32 | DRG 853 ==
LOC: ED 09:31 → EDIP 10:21 → UNDOADMIN 10:21 → 3NW 11:45 → CCU 02-07 12:03 → 3NW 02-07 14:42
PROVIDERS: ADMIT Internal Medicine; ATTEND Internal Medicine
PROC: 30233N1 Transfusion of Nonautologous Red Blood Cells into Peripheral Vein, Percutaneous Approach (ICD-10-PCS; 2017-02-04)
PROC: 0W993ZZ Drainage of Right Pleural Cavity, Percutaneous Approach (ICD-10-PCS; principal; 2017-02-07)
PROC: 0BCJ8ZZ Extirpation of Matter from Left Lower Lung Lobe, Via Natural or Artificial Opening Endoscopic (ICD-10-PCS; 2017-02-07)
PROC: 0BCD8ZZ Extirpation of Matter from Right Middle Lung Lobe, Via Natural or Artificial Opening Endoscopic (ICD-10-PCS; 2017-02-07)
PROC: 0BCF8ZZ Extirpation of Matter from Right Lower Lung Lobe, Via Natural or Artificial Opening Endoscopic (ICD-10-PCS; 2017-02-07)
DX: A41.9 Sepsis, unspecified organism (principal); J96.01 Acute respiratory failure with hypoxia; E43 Unspecified severe protein-calorie malnutrition; J69.0 Pneumonitis due to inhalation of food and vomit; J90 Pleural effusion, not elsewhere classified; D50.9 Iron deficiency anemia, unspecified; F17.210 Nicotine dependence, cigarettes, uncomplicated; E87.1 Hypo-osmolality and hyponatremia; J44.0 Chronic obstructive pulmonary disease with (acute) lower respiratory infection; J44.1 Chronic obstructive pulmonary disease with (acute) exacerbation; J98.11 Atelectasis; Z68.1 Body mass index [BMI] 19.9 or less, adult; S12.301A Unspecified nondisplaced fracture of fourth cervical vertebra, initial encounter for closed fracture; W18.30XA Fall on same level, unspecified, initial encounter; L98.9 Disorder of the skin and subcutaneous tissue, unspecified; D75.89 Other specified diseases of blood and blood-forming organs; E87.6 Hypokalemia; I49.3 Ventricular premature depolarization; I73.9 Peripheral vascular disease, unspecified; Z59.0 Homelessness; Z91.81 History of falling; Y93.89 Activity, other specified; Y92.89 Other specified places as the place of occurrence of the external cause; Y99.8 Other external cause status
CPT/HCPCS: 31622; 32555; 36415; 70491; 71010; 71250; 71260; 74230; 80048; 80053; 80202; 80307; 81001; 82040; 82150; 82272; 82607; 82746; 82945; 83540; 83550; 83605; 83615; 83735; 83986; 84100; 84145; 84443; 84484; 85014; 85018; 85025; 86850; 86900; 86923; 87040; 87070; 87077; 87086; 87186; 87205; 87324; 89051; 90686; 90732; 93005; 94640; 96360; J0696; J1650; J1750; J2543; J3370; J3480; J3490; J7620; Q9967; 92523-GN; G0479; J3475; J7030; J7040; J7050; P9016; Q0163; S0028

== ENCOUNTER 2017-03-15 06:36 | Inpatient (IN) | payer MEDICARE ==
[~2017-03-15] VITALS: Ht 167.6 cm; Wt 51.0 kg
[~2017-03-15 06:36] MED LIST changes: +ACET325T14 PO; +ASCO500T6 PO; +BISA10SU65 PR; +BUDE0.5A INH; +DOCU-131 PO; +FOLI-17 PO; +IPRA3AMP NPPB; +MAGN400T26 PO; +MULT1TAB81 PO; +THIA100T6 PO; +ZINC220C5 PO
[2017-03-15] MEDS ORDERED: ALBUTEROL/IPRATROPIUM 2.5MG/0.5MG, 3 ML ONE (07:00)
[2017-03-15] MEDS ORDERED: SODIUM CHLORIDE FLUSH 10ML SYR IVF ONE (07:00)
[2017-03-15] MEDS ORDERED: SODIUM CHLORIDE 0.9% 1,000ML IVBOLUS ONE (07:00)
[2017-03-15] MEDS ORDERED: KETOROLAC 30 MG/1 ML IV ONE (07:00)
[2017-03-15] MEDS ORDERED: ALBUTEROL/IPRATROPIUM 2.5MG/0.5MG, 3 ML NPPB ONE (07:00)
[2017-03-15] MEDS ORDERED: KETOROLAC 30 MG/1 ML ONE (07:28)
[2017-03-15 07:32] LABS: ASPARTATE AMINO TRANSFERASE 27 U/L (15-37); BLOOD UREA NITROGEN 15 mg/dL (7-18)
[2017-03-15 07:38] LABS: IS PT STATUS REG ER OR PRE ER? YES
[2017-03-15 07:39] LABS: HEMATOCRIT 30.8 % (39.2-51.8)
[2017-03-15] MEDS ORDERED: PIPERACILLIN/TAZO/PMX 3.375GM 50 ML IV ONE (10:00)
[2017-03-15] MEDS ORDERED: PIPERACILLIN/TAZO/PMX 3.375GM 50 ML ONE (10:42)
[2017-03-15] MEDS ORDERED: ENALAPRILAT 1.25 MG/ML, 2ML IVPush PRN (12:30)
[2017-03-15] MEDS: HEPARIN 5,000 UNITS/ML, 1ML SQ SCH ×2 (12:30→20:32)
[2017-03-15 12:58] LABS: IS PT STATUS REG ER OR PRE ER? YES
[2017-03-15 13:17] VITALS: BP 118/73
[2017-03-15 18:32] LABS: IS PT STATUS REG ER OR PRE ER? NO
[2017-03-15 20:00] VITALS: BP 115/68
[2017-03-16 04:21] VITALS: BP 100/62
[2017-03-16] MEDS: HEPARIN 5,000 UNITS/ML, 1ML SQ SCH ×3 (04:22→20:08)
[2017-03-16 06:03] LABS: HEMATOCRIT 26.2 % (39.2-51.8); HEMOGLOBIN 8.6 g/dL (13.7-18.0); WHITE BLOOD COUNT 5.8 x10^3/uL (3.4-10)
[2017-03-16 06:04] LABS: BLOOD UREA NITROGEN 12 mg/dL (7-18)
[2017-03-16] MEDS: SODIUM CHLORIDE INHALATION 7%, 4 ML NPPB SCH (07:14)
[2017-03-16 08:16] VITALS: BP 106/64
[2017-03-16 14:30] VITALS: BP 92/61
[2017-03-16 18:52] VITALS: BP 97/67
[2017-03-17 01:49] VITALS: BP 105/69
[2017-03-17] MEDS ORDERED: DIPHENHYDRAMINE 25 MG CAPSULE PO PRN (02:30)
[2017-03-17] MEDS: ACETAMINOPHEN 325 MG TABLET PO PRN ×3 (02:35→21:58)
[2017-03-17] MEDS: HEPARIN 5,000 UNITS/ML, 1ML SQ SCH (04:59)
[2017-03-17] MEDS: SODIUM CHLORIDE INHALATION 7%, 4 ML NPPB SCH (05:00)
[2017-03-17 07:38] VITALS: BP 108/75
[2017-03-17] MEDS ORDERED: POTASSIUM CHLORIDE 20 MEQ TAB.ER.PRT PO ONE (12:00)
[2017-03-17] MEDS ORDERED: ENOXAPARIN 40 MG/0.4 ML SQ SCH (12:00)
[2017-03-17 13:01] VITALS: BP 103/68
[2017-03-17 20:13] VITALS: BP 102/64
[2017-03-18 02:42] VITALS: BP 108/70
[2017-03-18 08:39] VITALS: BP 113/70
== END 2017-03-18 11:54 | disposition home or self-care (01) | DRG 205 ==
LOC: ED 06:47 → EDIP 11:11 → 4EST 12:59 → 4WST 17:18
PROVIDERS: ADMIT Hospitalist; ATTEND Internal Medicine
DX: J98.11 Atelectasis (principal); E43 Unspecified severe protein-calorie malnutrition; J18.0 Bronchopneumonia, unspecified organism; J44.0 Chronic obstructive pulmonary disease with (acute) lower respiratory infection; Z68.1 Body mass index [BMI] 19.9 or less, adult; J98.4 Other disorders of lung; D64.9 Anemia, unspecified; E87.6 Hypokalemia; Z59.0 Homelessness; Z87.891 Personal history of nicotine dependence
CPT/HCPCS: 36415; 71010; 71275; 80048; 80053; 83605; 83690; 83735; 84443; 84484; 85025; 85379; 85610; 85730; 86480; 87015; 87040; 87116; 87206; 93005; 94640; 96361; 96365; 96375; J1644; J1650; J1885; J2543; J7620; J7030; Q0163

== ENCOUNTER 2017-07-08 09:52 | Inpatient (IN) | payer MEDICARE, OTHER ==
[~2017-07-08] VITALS: Ht 167.6 cm; Wt 50.1 kg
[2017-07-08] MEDS ORDERED: SODIUM CHLORIDE 0.9% 1,000 ML IV ONE (10:01)
[2017-07-08 10:26] LABS: INTERNATIONAL NORMALIZED RATIO 1.22 (0.93-1.1); PROTHROMBIN TIME 12.6 Seconds (9.6-11.5)
[2017-07-08] MEDS ORDERED: SODIUM CHLORIDE FLUSH 10ML SYR IVF ONE ×2 (10:30→12:00)
[2017-07-08] MEDS ORDERED: SODIUM CHLORIDE 0.9% 1,000ML IVBOLUS ONE ×2 (10:30→12:00)
[2017-07-08 10:31] LABS: ALANINE AMINOTRANSFERASE 48 U/L (12-78); ALBUMIN 1.9 g/dL (3.4-5.0); ANION GAP 12 mmol/L (5-15); CALCIUM 7.9 mg/dL (8.5-10.1); CHLORIDE 100 mmol/L (98-107); CREATININE 1.12 mg/dL (0.7-1.3)
[2017-07-08 10:32] LABS: BASOPHILS # (AUTO) 0.05 x10^3/uL (0-0.1); BASOPHILS % (AUTO) 0 % (0-1); EOSINOPHILS # (AUTO) 0.02 x10^3/uL (0-0.4); EOSINOPHILS % (AUTO) 0 % (1-7); LYMPHOCYTES # (AUTO) 1.19 x10^3/uL (1-3.4); LYMPHOCYTES % (AUTO) 10 % (22-44); MD SCAN; MEAN CORPUSCULAR HGB CONC 32.8 g/dL (33.2-36.2); MEAN CORPUSCULAR VOLUME 91.7 fL (81-97); MEAN PLATELET VOLUME 6.9 fL (7.4-10.4); MONOCYTES # (AUTO) 0.88 x10^3/uL (0.2-0.8); MONOCYTES % (AUTO) 7 % (2-9); NEUTROPHILS # (AUTO) 10.05 x10^3/uL (1.8-6.8); NEUTROPHILS % (AUTO) 82 % (42-75); PLATELET COUNT 303 x10^3/uL (130-400); RED CELL DISTRIBUTION WIDTH 18.7 % (9.4-14.8)
[2017-07-08 10:36] LABS: ALKALINE PHOSPHATASE 125 U/L (45-117); BILIRUBIN,TOTAL 0.2 mg/dL (0.2-1.0); TOTAL PROTEIN 6.2 g/dL (6.4-8.2); TROPONIN I < 0.015 ng/mL (0.000-0.045)
[2017-07-08 10:48] LABS: CREATINE KINASE, TOTAL 33 U/L (39-308)
[2017-07-08] MEDS ORDERED: PHOS250T PO (10:55)
[2017-07-08] MEDS ORDERED: CHOL100011 PO (10:55)
[2017-07-08] MEDS ORDERED: FOLI-17 PO (10:55)
[2017-07-08] MEDS ORDERED: POTA20TA14 PO (10:55)
[2017-07-08] MEDS ORDERED: SENN17.23 PO (10:55)
[2017-07-08] MEDS ORDERED: MV-M1TAB3 PO (10:55)
[2017-07-08] MEDS ORDERED: THIA100T10 PO (10:55)
[2017-07-08] MEDS ORDERED: FERR324T5 PO (10:55)
[2017-07-08] MEDS ORDERED: NYST1000 PO (10:55)
[2017-07-08] MEDS ORDERED: PIPERACILLIN/TAZO/PMX 3.375GM 50 ML IVPB ONE (11:00)
[2017-07-08] MEDS ORDERED: PIPERACILLIN/TAZO/PMX 3.375GM 50 ML ONE (11:25)
[2017-07-08] MEDS ORDERED: ASPIRIN 81 MG TABLET CHEW ONE (11:26)
[2017-07-08] MEDS ORDERED: CARV3.122 PO (12:13)
[2017-07-08] MEDS ORDERED: SULF1TAB24 PO (12:13)
[2017-07-08 12:49] LABS: MICROSCOPIC INDICATED
[2017-07-08 13:03] LABS: CULTURE INDICATED? YES
[2017-07-08] MEDS ORDERED: PROPOFOL 100 ML IV ONE (14:41)
[2017-07-08] MEDS: KSCALE TO 4.0 IV SCH ×2 (15:00→21:04)
[2017-07-08] MEDS ORDERED: DOCUSATE 100 MG CAPSULE PO PRN (15:30)
[2017-07-08] MEDS ORDERED: BISACODYL 10 MG SUPP PR PRN (15:30)
[2017-07-08] MEDS ORDERED: VANCOMYCIN PER PHARMACY MC PRN (15:30)
[2017-07-08] MEDS ORDERED: POLYETHYLENE GLYCOL 17 GM PACKET PO PRN (15:30)
[2017-07-08] MEDS ORDERED: DOPAMINE/D5W PMX 250 ML IV PRN (15:57)
[2017-07-08] MEDS ORDERED: SODIUM PHOSPHATE 20 MMOL in SODIUM CHLORIDE 0.9% 250 ML IVPB PRN (15:57)
[2017-07-08] MEDS ORDERED: PROPOFOL 100 ML IV PRN (15:57)
[2017-07-08] MEDS ORDERED: FENTANYL PF 250 MCG in SODIUM CHLORIDE 0.9% 250 ML IV PRN (15:57)
[2017-07-08] MEDS ORDERED: DEXMEDETOMIDINE 200 MCG in SODIUM CHLORIDE 0.9% 48 ML IV PRN (15:57)
[2017-07-08 16:00] LABS: TROPONIN I < 0.015 ng/mL (0.000-0.045)
[2017-07-08] MEDS ORDERED: PHARMACOKINETIC MONITORING MC PRN (16:00)
[2017-07-08] MEDS ORDERED: LIDOCAINE-MPF 1%, 2ML ENDO PRN (16:00)
[2017-07-08] MEDS ORDERED: ARTIFICIAL TEARS OINT 3.5 GM EACHEYE SCH (16:00)
[2017-07-08] MEDS ORDERED: MAGNESIUM SULFATE 1 GM in SODIUM CHLORIDE 0.9% 50 ML IVPB PRN (16:00)
[2017-07-08] MEDS ORDERED: VANCOMYCIN PMX 1GM/200ML 200 ML IVPB SCH (16:00)
[2017-07-08] MEDS: PIPERACILLIN/TAZO/PMX 3.375GM 50 ML IV SCH ×2 (16:26→22:30)
[2017-07-08] MEDS: LACTATED RINGERS 1,000 ML IV SCH (16:27)
[2017-07-08] MEDS: ENOXAPARIN 40 MG/0.4 ML SQ SCH (16:35)
[2017-07-08] MEDS: BUSPIRONE 10 MG TABLET NG SCH (16:36)
[2017-07-08] MEDS: FERROUS SULFATE 325 MG TABLET PO SCH ×2 (17:06→21:12)
[2017-07-08] MEDS: ARTIFICIAL TEARS OINT 3.5 GM EACHEYE SCH (20:07)
[2017-07-08 20:20] VITALS: BP 190/110
[2017-07-08 20:42] LABS: TROPONIN I < 0.015 ng/mL (0.000-0.045)
[2017-07-08] MEDS: SENNOSIDES 8.6 MG TABLET PO SCH (21:12)
[2017-07-08] MEDS: FAMOTIDINE 20 MG/2 ML IVPush SCH (21:12)
[2017-07-08] MEDS: NOREPINEPHRINE 4 MG in SODIUM CHLORIDE 0.9% 246 ML IV PRN (22:51)
[2017-07-09] MEDS: BUSPIRONE 10 MG TABLET NG SCH ×3 (00:11→15:59)
[2017-07-09] MEDS ORDERED: POTASSIUM CHLORIDE PMX 100 ML IV ONE ×4 (00:30→20:30)
[2017-07-09] MEDS: KSCALE TO 4.0 IV SCH ×7 (00:30→23:56)
[2017-07-09] MEDS: PROPOFOL 100 ML IV PRN ×2 (01:41→15:10)
[2017-07-09] MEDS: LACTATED RINGERS 1,000 ML IV SCH ×2 (04:22→17:36)
[2017-07-09 04:31] LABS: BASOPHILS # (AUTO) 0.01 x10^3/uL (0-0.1); BASOPHILS % (AUTO) 0 % (0-1); EOSINOPHILS % (AUTO) 0 % (1-7); LYMPHOCYTES # (AUTO) 0.36 x10^3/uL (1-3.4); LYMPHOCYTES % (AUTO) 4 % (22-44); MD NO; MEAN CORPUSCULAR HEMOGLOBIN 29.6 pg (27.5-34.5); MEAN CORPUSCULAR HGB CONC 33.3 g/dL (33.2-36.2); MEAN CORPUSCULAR VOLUME 89.1 fL (81-97); MEAN PLATELET VOLUME 6.7 fL (7.4-10.4); MONOCYTES # (AUTO) 0.47 x10^3/uL (0.2-0.8); MONOCYTES % (AUTO) 5 % (2-9); NEUTROPHILS # (AUTO) 8.83 x10^3/uL (1.8-6.8); NEUTROPHILS % (AUTO) 91 % (42-75); PLATELET COUNT 273 x10^3/uL (130-400); RED BLOOD COUNT 2.85 x10^6/uL (4.38-5.82); RED CELL DISTRIBUTION WIDTH 17.9 % (9.4-14.8)
[2017-07-09 04:42] LABS: ALANINE AMINOTRANSFERASE 123 U/L (12-78); ALBUMIN 1.7 g/dL (3.4-5.0); ANION GAP 8 mmol/L (5-15); CALCIUM 7.5 mg/dL (8.5-10.1); CHLORIDE 105 mmol/L (98-107); CREATININE 0.91 mg/dL (0.7-1.3)
[2017-07-09 04:44] LABS: ALKALINE PHOSPHATASE 73 U/L (45-117); BILIRUBIN,TOTAL 0.5 mg/dL (0.2-1.0); TOTAL PROTEIN 5.9 g/dL (6.4-8.2)
[2017-07-09] MEDS: ARTIFICIAL TEARS OINT 3.5 GM EACHEYE SCH ×3 (04:55→20:23)
[2017-07-09] MEDS: PIPERACILLIN/TAZO/PMX 3.375GM 50 ML IV SCH ×4 (04:55→22:19)
[2017-07-09] MEDS: NOREPINEPHRINE 4 MG in SODIUM CHLORIDE 0.9% 246 ML IV PRN ×4 (05:19→22:18)
[2017-07-09] MEDS: FERROUS SULFATE 325 MG TABLET PO SCH ×3 (08:24→20:23)
[2017-07-09] MEDS: FAMOTIDINE 20 MG/2 ML IVPush SCH ×2 (08:24→20:23)
[2017-07-09] MEDS: MULTIVITAMIN 1 TABLET PO SCH (08:25)
[2017-07-09] MEDS: FOLIC ACID 1 MG TABLET PO SCH (08:25)
[2017-07-09] MEDS: SENNOSIDES 8.6 MG TABLET PO SCH ×2 (08:25→20:23)
[2017-07-09] MEDS: THIAMINE 100MG TABLET PO SCH (08:26)
[2017-07-09] MEDS: DEXTROSE 5% 1,000 ML IV SCH (11:02)
[2017-07-09] MEDS: VANCOMYCIN PMX 1GM/200ML 200 ML IVPB SCH (11:05)
[2017-07-09] MEDS ORDERED: PHARMACY INSTRUCTION MC PRN (13:30)
[2017-07-09] MEDS: ENOXAPARIN 40 MG/0.4 ML SQ SCH (15:08)
[2017-07-10] MEDS: BUSPIRONE 10 MG TABLET NG SCH ×3 (00:01→16:00)
[2017-07-10] MEDS: NOREPINEPHRINE 8 MG in SODIUM CHLORIDE 0.9% 242 ML IV PRN ×2 (01:59→05:57)
[2017-07-10 04:13] LABS: MD NO
[2017-07-10] MEDS: PIPERACILLIN/TAZO/PMX 3.375GM 50 ML IV SCH ×3 (04:15→18:42)
[2017-07-10] MEDS: LACTATED RINGERS 1,000 ML IV SCH ×2 (04:15→18:42)
[2017-07-10] MEDS: ARTIFICIAL TEARS OINT 3.5 GM EACHEYE SCH ×2 (04:15→14:09)
[2017-07-10 04:19] LABS: BASOPHILS % (AUTO) 1 % (0-1); EOSINOPHILS % (AUTO) 0 % (1-7); LYMPHOCYTES # (AUTO) 0.74 x10^3/uL (1-3.4); LYMPHOCYTES % (AUTO) 7 % (22-44); MEAN CORPUSCULAR HEMOGLOBIN 29.4 pg (27.5-34.5); MEAN CORPUSCULAR HGB CONC 33.1 g/dL (33.2-36.2); MEAN CORPUSCULAR VOLUME 88.7 fL (81-97); MEAN PLATELET VOLUME 7.4 fL (7.4-10.4); MONOCYTES # (AUTO) 0.55 x10^3/uL (0.2-0.8); MONOCYTES % (AUTO) 5 % (2-9); NEUTROPHILS # (AUTO) 9.49 x10^3/uL (1.8-6.8); NEUTROPHILS % (AUTO) 87 % (42-75); PLATELET COUNT 374 x10^3/uL (130-400); RED BLOOD COUNT 2.97 x10^6/uL (4.38-5.82); RED CELL DISTRIBUTION WIDTH 18.3 % (9.4-14.8)
[2017-07-10] MEDS: KSCALE TO 4.0 IV SCH ×3 (04:26→12:00)
[2017-07-10] MEDS: VANCOMYCIN PMX 1GM/200ML 200 ML IVPB SCH (05:21)
[2017-07-10 06:02] LABS: ANION GAP 11 mmol/L (5-15); CALCIUM 7.6 mg/dL (8.5-10.1); CHLORIDE 103 mmol/L (98-107); CREATININE 0.95 mg/dL (0.7-1.3)
[2017-07-10] MEDS: DEXTROSE 5% 1,000 ML IV SCH (06:42)
[2017-07-10] MEDS: SENNOSIDES 8.6 MG TABLET PO SCH ×2 (09:00→20:30)
[2017-07-10] MEDS: FERROUS SULFATE 325 MG TABLET PO SCH ×3 (09:07→20:30)
[2017-07-10] MEDS: MULTIVITAMIN 1 TABLET PO SCH (09:08)
[2017-07-10] MEDS: FOLIC ACID 1 MG TABLET PO SCH (09:08)
[2017-07-10] MEDS: THIAMINE 100MG TABLET PO SCH (09:08)
[2017-07-10] MEDS: FAMOTIDINE 20 MG/2 ML IVPush SCH ×2 (09:09→20:30)
[2017-07-10] MEDS ORDERED: POTASSIUM CHLORIDE PMX 100 ML IV ONE (10:00)
[2017-07-10] MEDS ORDERED: NOREPINEPHRINE 16 MG in SODIUM CHLORIDE 0.9% 234 ML IV PRN (12:30)
[2017-07-10] MEDS ORDERED: GADOBUTROL 7.5 MMOL/7.5 ML PFS ONE (13:20)
[2017-07-10] MEDS: ENOXAPARIN 40 MG/0.4 ML SQ SCH (14:09)
[2017-07-10] MEDS: PROPOFOL 100 ML IV PRN (14:09)
[2017-07-11] MEDS: PIPERACILLIN/TAZO/PMX 3.375GM 50 ML IV SCH ×4 (01:13→19:13)
[2017-07-11] MEDS: DEXTROSE 5% 1,000 ML IV SCH (03:52)
[2017-07-11] MEDS: VANCOMYCIN PMX 1GM/200ML 200 ML IVPB SCH (05:02)
[2017-07-11] MEDS: LACTATED RINGERS 1,000 ML IV SCH (05:02)
[2017-07-11 05:48] LABS: MEAN CORPUSCULAR HEMOGLOBIN 30.7 pg (27.5-34.5); MEAN CORPUSCULAR HGB CONC 33.9 g/dL (33.2-36.2); MEAN CORPUSCULAR VOLUME 90.4 fL (81-97); MEAN PLATELET VOLUME 7.4 fL (7.4-10.4); PLATELET COUNT 294 x10^3/uL (130-400); RED BLOOD COUNT 2.26 x10^6/uL (4.38-5.82); RED CELL DISTRIBUTION WIDTH 18.3 % (9.4-14.8)
[2017-07-11 05:58] LABS: ALBUMIN 1.5 g/dL (3.4-5.0); ANION GAP 6 mmol/L (5-15); CALCIUM 7.8 mg/dL (8.5-10.1); CHLORIDE 107 mmol/L (98-107)
[2017-07-11 06:02] LABS: ALANINE AMINOTRANSFERASE 68 U/L (12-78); ALKALINE PHOSPHATASE 56 U/L (45-117); BILIRUBIN,TOTAL 0.4 mg/dL (0.2-1.0); CREATININE 0.93 mg/dL (0.7-1.3); TOTAL PROTEIN 5.2 g/dL (6.4-8.2); TRIGLYCERIDES 77 mg/dL (50-200)
[2017-07-11] MEDS ORDERED: SODIUM CHLORIDE 0.9% 1,000 ML IV SCH (06:30)
[2017-07-11 06:34] LABS: BASOPHILS # (AUTO) 0.03 x10^3/uL (0-0.1); BASOPHILS % (AUTO) 1 % (0-1); EOSINOPHILS # (AUTO) 0.03 x10^3/uL (0-0.4); EOSINOPHILS % (AUTO) 1 % (1-7); LYMPHOCYTES % (AUTO) 11 % (22-44); MD SCAN; MONOCYTES # (AUTO) 0.37 x10^3/uL (0.2-0.8); MONOCYTES % (AUTO) 6 % (2-9); NEUTROPHILS # (AUTO) 5.06 x10^3/uL (1.8-6.8); NEUTROPHILS % (AUTO) 82 % (42-75)
[2017-07-11 08:33] VITALS: BP 105/62
[2017-07-11] MEDS: SENNOSIDES 8.6 MG TABLET PO SCH ×2 (09:00→20:04)
[2017-07-11 09:06] VITALS: BP 109/58
[2017-07-11] MEDS: POTASSIUM CHLORIDE 20 MEQ PACKET PO SCH ×2 (09:20→20:03)
[2017-07-11] MEDS: FOLIC ACID 1 MG TABLET PO SCH (09:21)
[2017-07-11] MEDS: MULTIVITAMIN 1 TABLET PO SCH (09:21)
[2017-07-11] MEDS: FERROUS SULFATE 325 MG TABLET PO SCH ×3 (09:21→20:04)
[2017-07-11] MEDS: FAMOTIDINE 20 MG/2 ML IVPush SCH ×2 (09:21→20:04)
[2017-07-11] MEDS: THIAMINE 100MG TABLET PO SCH (09:21)
[2017-07-11 09:41] VITALS: BP 105/58
[2017-07-11 10:04] VITALS: BP 104/58
[2017-07-11 11:00] VITALS: BP 115/75
[2017-07-11 11:22] VITALS: BP 117/77
[2017-07-11] MEDS: ENOXAPARIN 40 MG/0.4 ML SQ SCH (15:12)
[2017-07-11] MEDS ORDERED: ACETAMINOPHEN 325 MG TABLET PO PRN (20:00)
[2017-07-12] MEDS: PIPERACILLIN/TAZO/PMX 3.375GM 50 ML IV SCH ×4 (01:34→20:49)
[2017-07-12 04:42] LABS: BASOPHILS # (AUTO) 0.03 x10^3/uL (0-0.1); BASOPHILS % (AUTO) 1 % (0-1); EOSINOPHILS # (AUTO) 0.06 x10^3/uL (0-0.4); EOSINOPHILS % (AUTO) 1 % (1-7); LYMPHOCYTES # (AUTO) 0.78 x10^3/uL (1-3.4); LYMPHOCYTES % (AUTO) 12 % (22-44); MD NO; MEAN CORPUSCULAR HEMOGLOBIN 29.6 pg (27.5-34.5); MEAN CORPUSCULAR HGB CONC 33.7 g/dL (33.2-36.2); MEAN CORPUSCULAR VOLUME 88.1 fL (81-97); MEAN PLATELET VOLUME 7.3 fL (7.4-10.4); MONOCYTES # (AUTO) 0.47 x10^3/uL (0.2-0.8); MONOCYTES % (AUTO) 7 % (2-9); NEUTROPHILS # (AUTO) 4.99 x10^3/uL (1.8-6.8); NEUTROPHILS % (AUTO) 79 % (42-75); PLATELET COUNT 254 x10^3/uL (130-400); RED BLOOD COUNT 3.16 x10^6/uL (4.38-5.82); RED CELL DISTRIBUTION WIDTH 17.3 % (9.4-14.8)
[2017-07-12] MEDS: VANCOMYCIN PMX 1GM/200ML 200 ML IVPB SCH (04:56)
[2017-07-12 05:28] LABS: ANION GAP 7 mmol/L (5-15); CALCIUM 7.8 mg/dL (8.5-10.1); CHLORIDE 107 mmol/L (98-107); CREATININE 0.96 mg/dL (0.7-1.3)
[2017-07-12] MEDS: SENNOSIDES 8.6 MG TABLET PO SCH ×2 (09:00→21:00)
[2017-07-12] MEDS: DOXYCYCLINE 100 MG in DEXTROSE 5% 250 ML IV SCH ×2 (09:31→19:36)
[2017-07-12] MEDS: FOLIC ACID 1 MG TABLET PO SCH (09:43)
[2017-07-12] MEDS: FAMOTIDINE 20 MG/2 ML IVPush SCH ×2 (09:43→21:24)
[2017-07-12] MEDS: FERROUS SULFATE 325 MG TABLET PO SCH ×3 (09:43→21:23)
[2017-07-12] MEDS: MULTIVITAMIN 1 TABLET PO SCH (09:43)
[2017-07-12] MEDS: THIAMINE 100MG TABLET PO SCH (09:43)
[2017-07-12] MEDS: ENOXAPARIN 40 MG/0.4 ML SQ SCH (15:59)
[2017-07-13] MEDS: PIPERACILLIN/TAZO/PMX 3.375GM 50 ML IV SCH ×4 (02:06→20:04)
[2017-07-13 04:30] LABS: MEAN CORPUSCULAR HEMOGLOBIN 29.5 pg (27.5-34.5); MEAN CORPUSCULAR HGB CONC 32.9 g/dL (33.2-36.2); MEAN CORPUSCULAR VOLUME 89.6 fL (81-97); MEAN PLATELET VOLUME 6.8 fL (7.4-10.4); PLATELET COUNT 246 x10^3/uL (130-400); RED BLOOD COUNT 3.16 x10^6/uL (4.38-5.82); RED CELL DISTRIBUTION WIDTH 17.4 % (9.4-14.8)
[2017-07-13 05:47] LABS: BASOPHILS # (AUTO) 0.05 x10^3/uL (0-0.1); BASOPHILS % (AUTO) 1 % (0-1); EOSINOPHILS % (AUTO) 5 % (1-7); LYMPHOCYTES # (AUTO) 0.86 x10^3/uL (1-3.4); LYMPHOCYTES % (AUTO) 13 % (22-44); MD SCAN; MONOCYTES # (AUTO) 0.61 x10^3/uL (0.2-0.8); MONOCYTES % (AUTO) 9 % (2-9); NEUTROPHILS # (AUTO) 4.74 x10^3/uL (1.8-6.8); NEUTROPHILS % (AUTO) 72 % (42-75)
[2017-07-13 06:30] LABS: ANION GAP 5 mmol/L (5-15); CALCIUM 7.9 mg/dL (8.5-10.1); CHLORIDE 105 mmol/L (98-107); CREATININE 0.94 mg/dL (0.7-1.3)
[2017-07-13] MEDS: DOXYCYCLINE 100 MG in DEXTROSE 5% 250 ML IV SCH ×2 (07:45→21:27)
[2017-07-13] MEDS: SENNOSIDES 8.6 MG TABLET PO SCH ×2 (08:31→21:00)
[2017-07-13] MEDS ORDERED: MULTIVITAMIN LIQUID NG SCH (09:00)
[2017-07-13] MEDS: FOLIC ACID 1 MG TABLET PO SCH (09:05)
[2017-07-13] MEDS: THIAMINE 100MG TABLET PO SCH (09:05)
[2017-07-13] MEDS: FAMOTIDINE 20 MG/2 ML IVPush SCH ×2 (09:05→21:26)
[2017-07-13] MEDS: POTASSIUM CHLORIDE 10% 40 MEQ/30 ML UDC PO SCH ×2 (09:05→21:26)
[2017-07-13] MEDS: FERROUS SULFATE 220 MG/5 ML ORAL SOL NG SCH ×3 (10:39→21:26)
[2017-07-13] MEDS: MULTIVITAMIN LIQUID NG SCH (10:40)
[2017-07-13] MEDS: ENOXAPARIN 60 MG/0.6 ML SQ SCH (15:17)
[2017-07-14] MEDS: PIPERACILLIN/TAZO/PMX 3.375GM 50 ML IV SCH ×4 (02:32→20:03)
[2017-07-14] MEDS: ENOXAPARIN 60 MG/0.6 ML SQ SCH ×2 (02:33→13:39)
[2017-07-14 04:35] LABS: BASOPHILS # (AUTO) 0.07 x10^3/uL (0-0.1); BASOPHILS % (AUTO) 1 % (0-1); EOSINOPHILS # (AUTO) 0.42 x10^3/uL (0-0.4); EOSINOPHILS % (AUTO) 6 % (1-7); LYMPHOCYTES # (AUTO) 0.79 x10^3/uL (1-3.4); LYMPHOCYTES % (AUTO) 11 % (22-44); MD NO; MEAN CORPUSCULAR HEMOGLOBIN 29.9 pg (27.5-34.5); MEAN CORPUSCULAR HGB CONC 32.9 g/dL (33.2-36.2); MEAN CORPUSCULAR VOLUME 90.8 fL (81-97); MEAN PLATELET VOLUME 7.2 fL (7.4-10.4); MONOCYTES # (AUTO) 0.91 x10^3/uL (0.2-0.8); MONOCYTES % (AUTO) 12 % (2-9); NEUTROPHILS # (AUTO) 5.33 x10^3/uL (1.8-6.8); NEUTROPHILS % (AUTO) 71 % (42-75); PLATELET COUNT 243 x10^3/uL (130-400); RED BLOOD COUNT 3.24 x10^6/uL (4.38-5.82); RED CELL DISTRIBUTION WIDTH 19.2 % (9.4-14.8)
[2017-07-14 07:17] LABS: ANION GAP 7 mmol/L (5-15); CALCIUM 7.6 mg/dL (8.5-10.1); CHLORIDE 104 mmol/L (98-107); CREATININE 0.91 mg/dL (0.7-1.3)
[2017-07-14] MEDS: SENNOSIDES 8.6 MG TABLET PO SCH ×2 (08:32→20:53)
[2017-07-14] MEDS: MULTIVITAMIN LIQUID NG SCH (09:08)
[2017-07-14] MEDS: THIAMINE 100MG TABLET PO SCH (09:08)
[2017-07-14] MEDS: FAMOTIDINE 20 MG/2 ML IVPush SCH ×2 (09:08→20:52)
[2017-07-14] MEDS: DOXYCYCLINE 100 MG in DEXTROSE 5% 250 ML IV SCH ×2 (09:08→20:52)
[2017-07-14] MEDS: FERROUS SULFATE 220 MG/5 ML ORAL SOL NG SCH ×3 (09:08→20:52)
[2017-07-14] MEDS: FOLIC ACID 1 MG TABLET PO SCH (09:09)
[2017-07-15] MEDS: ENOXAPARIN 60 MG/0.6 ML SQ SCH ×2 (01:52→14:08)
[2017-07-15] MEDS: PIPERACILLIN/TAZO/PMX 3.375GM 50 ML IV SCH (01:52)
[2017-07-15 06:45] LABS: MEAN CORPUSCULAR HEMOGLOBIN 30.5 pg (27.5-34.5); MEAN CORPUSCULAR HGB CONC 33.6 g/dL (33.2-36.2); MEAN CORPUSCULAR VOLUME 90.8 fL (81-97); MEAN PLATELET VOLUME 7.5 fL (7.4-10.4); PLATELET COUNT 243 x10^3/uL (130-400); RED CELL DISTRIBUTION WIDTH 18.4 % (9.4-14.8)
[2017-07-15 06:53] LABS: ALANINE AMINOTRANSFERASE 38 U/L (12-78); ALBUMIN 1.6 g/dL (3.4-5.0); ANION GAP 7 mmol/L (5-15); CALCIUM 7.9 mg/dL (8.5-10.1); CHLORIDE 102 mmol/L (98-107); CREATININE 0.91 mg/dL (0.7-1.3)
[2017-07-15 06:56] LABS: ALKALINE PHOSPHATASE 61 U/L (45-117); BILIRUBIN,TOTAL 0.4 mg/dL (0.2-1.0); TOTAL PROTEIN 5.7 g/dL (6.4-8.2)
[2017-07-15 07:10] LABS: BASOPHILS # (AUTO) 0.03 x10^3/uL (0-0.1); BASOPHILS % (AUTO) 0 % (0-1); EOSINOPHILS # (AUTO) 0.47 x10^3/uL (0-0.4); EOSINOPHILS % (AUTO) 5 % (1-7); LYMPHOCYTES # (AUTO) 0.82 x10^3/uL (1-3.4); LYMPHOCYTES % (AUTO) 9 % (22-44); MD SCAN; MONOCYTES # (AUTO) 0.89 x10^3/uL (0.2-0.8); MONOCYTES % (AUTO) 10 % (2-9); NEUTROPHILS # (AUTO) 6.64 x10^3/uL (1.8-6.8); NEUTROPHILS % (AUTO) 75 % (42-75)
[2017-07-15] MEDS: PIPERACILLIN/TAZO 3.375 GM in SODIUM CHLORIDE 0.9% 50 ML IVPB SCH ×2 (07:44→14:09)
[2017-07-15] MEDS: SENNOSIDES 8.6 MG TABLET PO SCH ×2 (08:26→20:33)
[2017-07-15] MEDS: DOXYCYCLINE 100 MG in DEXTROSE 5% 250 ML IV SCH ×2 (08:33→20:47)
[2017-07-15] MEDS: MULTIVITAMIN LIQUID NG SCH (08:33)
[2017-07-15] MEDS: THIAMINE 100MG TABLET PO SCH (08:33)
[2017-07-15] MEDS: FERROUS SULFATE 220 MG/5 ML ORAL SOL NG SCH ×3 (08:33→20:47)
[2017-07-15] MEDS: FOLIC ACID 1 MG TABLET PO SCH (08:33)
[2017-07-15] MEDS: FAMOTIDINE 20 MG/2 ML IVPush SCH ×2 (08:33→20:47)
[2017-07-15] MEDS: PIPERACILLIN/TAZO 3.375 GM in DEXTROSE 5% 50 ML IVPB SCH (20:47)
[2017-07-16] MEDS: ENOXAPARIN 60 MG/0.6 ML SQ SCH ×2 (02:00→14:41)
[2017-07-16] MEDS: PIPERACILLIN/TAZO 3.375 GM in DEXTROSE 5% 50 ML IVPB SCH ×4 (03:14→20:04)
[2017-07-16 04:31] LABS: BASOPHILS # (AUTO) 0.03 x10^3/uL (0-0.1); BASOPHILS % (AUTO) 0 % (0-1); EOSINOPHILS % (AUTO) 5 % (1-7); LYMPHOCYTES # (AUTO) 0.65 x10^3/uL (1-3.4); LYMPHOCYTES % (AUTO) 8 % (22-44); MD NO; MEAN CORPUSCULAR HEMOGLOBIN 29.5 pg (27.5-34.5); MEAN CORPUSCULAR HGB CONC 32.6 g/dL (33.2-36.2); MEAN CORPUSCULAR VOLUME 90.4 fL (81-97); MEAN PLATELET VOLUME 7.8 fL (7.4-10.4); MONOCYTES # (AUTO) 0.74 x10^3/uL (0.2-0.8); MONOCYTES % (AUTO) 9 % (2-9); NEUTROPHILS # (AUTO) 6.23 x10^3/uL (1.8-6.8); NEUTROPHILS % (AUTO) 77 % (42-75); PLATELET COUNT 234 x10^3/uL (130-400); RED BLOOD COUNT 2.83 x10^6/uL (4.38-5.82); RED CELL DISTRIBUTION WIDTH 18.8 % (9.4-14.8)
[2017-07-16 04:37] LABS: ALANINE AMINOTRANSFERASE 44 U/L (12-78); ALBUMIN 1.5 g/dL (3.4-5.0); ANION GAP 9 mmol/L (5-15); CALCIUM 7.4 mg/dL (8.5-10.1); CHLORIDE 99 mmol/L (98-107); CREATININE 0.79 mg/dL (0.7-1.3)
[2017-07-16 04:39] LABS: ALKALINE PHOSPHATASE 86 U/L (45-117); BILIRUBIN,TOTAL 0.3 mg/dL (0.2-1.0); TOTAL PROTEIN 5.3 g/dL (6.4-8.2)
[2017-07-16] MEDS: SENNOSIDES 8.6 MG TABLET PO SCH ×2 (09:00→19:52)
[2017-07-16] MEDS: DOXYCYCLINE 100 MG in DEXTROSE 5% 250 ML IV SCH ×2 (09:35→21:19)
[2017-07-16] MEDS: MULTIVITAMIN LIQUID NG SCH (09:36)
[2017-07-16] MEDS: THIAMINE 100MG TABLET PO SCH (09:36)
[2017-07-16] MEDS: FOLIC ACID 1 MG TABLET PO SCH (09:36)
[2017-07-16] MEDS: FAMOTIDINE 20 MG/2 ML IVPush SCH ×2 (09:36→20:03)
[2017-07-16] MEDS: FERROUS SULFATE 220 MG/5 ML ORAL SOL NG SCH ×3 (09:36→20:03)
[2017-07-17] MEDS: PIPERACILLIN/TAZO 3.375 GM in DEXTROSE 5% 50 ML IVPB SCH ×2 (02:49→08:52)
[2017-07-17] MEDS: ENOXAPARIN 60 MG/0.6 ML SQ SCH ×2 (02:49→14:36)
[2017-07-17 05:17] LABS: BASOPHILS # (AUTO) 0.07 x10^3/uL (0-0.1); BASOPHILS % (AUTO) 1 % (0-1); EOSINOPHILS % (AUTO) 3 % (1-7); LYMPHOCYTES % (AUTO) 7 % (22-44); MD NO; MEAN CORPUSCULAR HEMOGLOBIN 30.1 pg (27.5-34.5); MEAN CORPUSCULAR VOLUME 91.3 fL (81-97); MEAN PLATELET VOLUME 8.9 fL (7.4-10.4); MONOCYTES # (AUTO) 0.85 x10^3/uL (0.2-0.8); MONOCYTES % (AUTO) 7 % (2-9); NEUTROPHILS # (AUTO) 9.92 x10^3/uL (1.8-6.8); NEUTROPHILS % (AUTO) 82 % (42-75); PLATELET COUNT 290 x10^3/uL (130-400); RED BLOOD COUNT 2.76 x10^6/uL (4.38-5.82); RED CELL DISTRIBUTION WIDTH 18.5 % (9.4-14.8)
[2017-07-17 05:18] LABS: CHLORIDE 99 mmol/L (98-107)
[2017-07-17 05:30] LABS: ANION GAP 8 mmol/L (5-15); CALCIUM 7.6 mg/dL (8.5-10.1); CREATININE 0.76 mg/dL (0.7-1.3); TRIGLYCERIDES 30 mg/dL (50-200)
[2017-07-17] MEDS ORDERED: FENTANYL PF 100 MCG/2ML ONE (05:45)
[2017-07-17] MEDS ORDERED: FENTANYL PF 100 MCG/2ML IV ONE (06:00)
[2017-07-17] MEDS ORDERED: MIDAZOLAM 1 MG/ML, 2ML ONE (06:00)
[2017-07-17] MEDS ORDERED: MIDAZOLAM 1 MG/ML, 2ML IVPush ONE (06:30)
[2017-07-17] MEDS: MULTIVITAMIN LIQUID NG SCH (08:52)
[2017-07-17] MEDS: FOLIC ACID 1 MG TABLET PO SCH (08:52)
[2017-07-17] MEDS: DOXYCYCLINE 100 MG in DEXTROSE 5% 250 ML IV SCH (08:52)
[2017-07-17] MEDS: THIAMINE 100MG TABLET PO SCH (08:52)
[2017-07-17] MEDS: FERROUS SULFATE 220 MG/5 ML ORAL SOL NG SCH ×3 (08:53→20:57)
[2017-07-17] MEDS: FAMOTIDINE 20 MG/2 ML IVPush SCH ×2 (08:53→20:57)
[2017-07-17] MEDS: SENNOSIDES 8.6 MG TABLET PO SCH ×2 (09:00→19:31)
[2017-07-17] MEDS: CEFTRIAXONE 2 GM in DEXTROSE 5% 50 ML IV SCH (14:36)
[2017-07-18] MEDS: ENOXAPARIN 60 MG/0.6 ML SQ SCH ×2 (02:06→06:25)
[2017-07-18 04:59] LABS: MEAN CORPUSCULAR HEMOGLOBIN 30.5 pg (27.5-34.5); MEAN CORPUSCULAR HGB CONC 33.3 g/dL (33.2-36.2); MEAN CORPUSCULAR VOLUME 91.6 fL (81-97); MEAN PLATELET VOLUME 9.2 fL (7.4-10.4); PLATELET COUNT 291 x10^3/uL (130-400); RED BLOOD COUNT 2.41 x10^6/uL (4.38-5.82); RED CELL DISTRIBUTION WIDTH 19.2 % (9.4-14.8)
[2017-07-18 05:34] LABS: BASOPHILS # (AUTO) 0.05 x10^3/uL (0-0.1); BASOPHILS % (AUTO) 1 % (0-1); EOSINOPHILS # (AUTO) 0.45 x10^3/uL (0-0.4); EOSINOPHILS % (AUTO) 6 % (1-7); LYMPHOCYTES # (AUTO) 0.82 x10^3/uL (1-3.4); LYMPHOCYTES % (AUTO) 11 % (22-44); MD SCAN; MONOCYTES # (AUTO) 0.69 x10^3/uL (0.2-0.8); MONOCYTES % (AUTO) 9 % (2-9); NEUTROPHILS # (AUTO) 5.28 x10^3/uL (1.8-6.8); NEUTROPHILS % (AUTO) 72 % (42-75)
[2017-07-18] MEDS: SCOPOLAMINE PATCH, 1.5MG PATCH.TD72 TD SCH (06:25)
[2017-07-18 07:17] LABS: INTERNATIONAL NORMALIZED RATIO 1.03 (0.93-1.1); PROTHROMBIN TIME 10.7 Seconds (9.6-11.5)
[2017-07-18] MEDS: THIAMINE 100MG TABLET PO SCH (08:21)
[2017-07-18] MEDS: MULTIVITAMIN LIQUID NG SCH (08:21)
[2017-07-18] MEDS: FOLIC ACID 1 MG TABLET PO SCH (08:21)
[2017-07-18] MEDS: FAMOTIDINE 20 MG/2 ML IVPush SCH ×2 (08:21→21:05)
[2017-07-18] MEDS: FERROUS SULFATE 220 MG/5 ML ORAL SOL NG SCH ×3 (08:22→21:06)
[2017-07-18] MEDS: SENNOSIDES 8.6 MG TABLET PO SCH ×2 (08:38→19:17)
[2017-07-18 09:33] VITALS: BP 114/68
[2017-07-18 09:48] VITALS: BP 120/68
[2017-07-18 11:20] VITALS: BP 116/70
[2017-07-18] MEDS: ALBUMIN HUMAN 25% 100 ML IV SCH (13:43)
[2017-07-18] MEDS: CEFTRIAXONE 2 GM in DEXTROSE 5% 50 ML IV SCH (13:43)
[2017-07-18] MEDS: FUROSEMIDE 40 MG/4 ML IV SCH (14:34)
[2017-07-18 14:41] LABS: MEAN CORPUSCULAR HEMOGLOBIN 30.1 pg (27.5-34.5); MEAN CORPUSCULAR HGB CONC 33.2 g/dL (33.2-36.2); MEAN CORPUSCULAR VOLUME 90.8 fL (81-97); MEAN PLATELET VOLUME 8.5 fL (7.4-10.4); PLATELET COUNT 333 x10^3/uL (130-400); RED BLOOD COUNT 2.77 x10^6/uL (4.38-5.82); RED CELL DISTRIBUTION WIDTH 17.5 % (9.4-14.8)
[2017-07-19] MEDS: ALBUMIN HUMAN 25% 100 ML IV SCH (01:05)
[2017-07-19] MEDS: ENOXAPARIN 60 MG/0.6 ML SQ SCH ×2 (01:05→15:19)
[2017-07-19] MEDS ORDERED: FUROSEMIDE 40 MG/4 ML ONE (02:35)
[2017-07-19] MEDS: FUROSEMIDE 40 MG/4 ML IV SCH (02:41)
[2017-07-19] MEDS: SCOPOLAMINE PATCH, 1.5MG PATCH.TD72 TD SCH (02:42)
[2017-07-19] MEDS: ARTIFICIAL TEARS OINT 3.5 GM EACHEYE PRN ×2 (02:42→20:29)
[2017-07-19 04:26] LABS: BASOPHILS # (AUTO) 0.04 x10^3/uL (0-0.1); BASOPHILS % (AUTO) 0 % (0-1); EOSINOPHILS % (AUTO) 3 % (1-7); LYMPHOCYTES # (AUTO) 1.23 x10^3/uL (1-3.4); LYMPHOCYTES % (AUTO) 12 % (22-44); MD NO; MEAN CORPUSCULAR HEMOGLOBIN 30.6 pg (27.5-34.5); MEAN CORPUSCULAR HGB CONC 33.4 g/dL (33.2-36.2); MEAN CORPUSCULAR VOLUME 91.7 fL (81-97); MEAN PLATELET VOLUME 8.7 fL (7.4-10.4); MONOCYTES # (AUTO) 0.94 x10^3/uL (0.2-0.8); MONOCYTES % (AUTO) 10 % (2-9); NEUTROPHILS % (AUTO) 75 % (42-75); PLATELET COUNT 425 x10^3/uL (130-400); RED BLOOD COUNT 2.91 x10^6/uL (4.38-5.82); RED CELL DISTRIBUTION WIDTH 17.7 % (9.4-14.8)
[2017-07-19] MEDS: SENNOSIDES 8.6 MG TABLET PO SCH ×2 (09:00→20:20)
[2017-07-19] MEDS: FAMOTIDINE 20 MG/2 ML IVPush SCH ×2 (09:34→20:20)
[2017-07-19] MEDS: FERROUS SULFATE 220 MG/5 ML ORAL SOL NG SCH ×3 (09:35→20:21)
[2017-07-19] MEDS: MULTIVITAMIN LIQUID NG SCH (09:35)
[2017-07-19] MEDS: FOLIC ACID 1 MG TABLET PO SCH (09:35)
[2017-07-19] MEDS: LEVETIRACETAM 1,000 MG in SODIUM CHLORIDE 0.9% 100 ML IV SCH ×2 (09:35→20:21)
[2017-07-19] MEDS: THIAMINE 100MG TABLET PO SCH (09:35)
[2017-07-19] MEDS ORDERED: MIDAZOLAM 1 MG/ML, 2ML ONE (12:59)
[2017-07-19] MEDS ORDERED: GADOBUTROL 7.5 MMOL/7.5 ML PFS ONE (13:40)
[2017-07-19] MEDS: CEFTRIAXONE 2 GM in DEXTROSE 5% 50 ML IV SCH (14:06)
[2017-07-19] MEDS ORDERED: ENOXAPARIN 30 MG/0.3 ML ONE (15:15)
[2017-07-19] MEDS ORDERED: FENTANYL PF 100 MCG/2ML ONE (16:36)
[2017-07-19] MEDS: FENTANYL PF 100 MCG/2ML IVPush PRN ×2 (16:40→21:59)
[2017-07-20] MEDS: ENOXAPARIN 60 MG/0.6 ML SQ SCH ×2 (01:50→13:57)
[2017-07-20] MEDS: SENNOSIDES 8.6 MG TABLET PO SCH ×2 (09:00→19:44)
[2017-07-20] MEDS: MULTIVITAMIN LIQUID NG SCH (09:05)
[2017-07-20] MEDS: FERROUS SULFATE 220 MG/5 ML ORAL SOL NG SCH ×3 (09:05→20:05)
[2017-07-20] MEDS: THIAMINE 100MG TABLET PO SCH (09:05)
[2017-07-20] MEDS: FOLIC ACID 1 MG TABLET PO SCH (09:05)
[2017-07-20] MEDS: FAMOTIDINE 20 MG/2 ML IVPush SCH ×2 (09:05→20:05)
[2017-07-20] MEDS: LEVETIRACETAM 1,000 MG in SODIUM CHLORIDE 0.9% 100 ML IV SCH ×2 (11:04→20:12)
[2017-07-20] MEDS: CEFTRIAXONE 2 GM in DEXTROSE 5% 50 ML IV SCH (13:57)
[2017-07-21] MEDS: FENTANYL PF 100 MCG/2ML IVPush PRN (00:07)
[2017-07-21] MEDS: ENOXAPARIN 60 MG/0.6 ML SQ SCH ×3 (01:11→21:46)
[2017-07-21 05:23] LABS: ALBUMIN 2.1 g/dL (3.4-5.0); ANION GAP 6 mmol/L (5-15); CALCIUM 8.2 mg/dL (8.5-10.1); CHLORIDE 98 mmol/L (98-107)
[2017-07-21 05:24] LABS: BASOPHILS # (AUTO) 0.12 x10^3/uL (0-0.1); BASOPHILS % (AUTO) 2 % (0-1); EOSINOPHILS # (AUTO) 0.42 x10^3/uL (0-0.4); EOSINOPHILS % (AUTO) 7 % (1-7); LYMPHOCYTES # (AUTO) 1.26 x10^3/uL (1-3.4); LYMPHOCYTES % (AUTO) 19 % (22-44); MD NO; MEAN CORPUSCULAR HEMOGLOBIN 30.6 pg (27.5-34.5); MEAN CORPUSCULAR HGB CONC 33.2 g/dL (33.2-36.2); MEAN PLATELET VOLUME 8.2 fL (7.4-10.4); MONOCYTES # (AUTO) 0.64 x10^3/uL (0.2-0.8); MONOCYTES % (AUTO) 10 % (2-9); NEUTROPHILS # (AUTO) 4.05 x10^3/uL (1.8-6.8); NEUTROPHILS % (AUTO) 62 % (42-75); PLATELET COUNT 491 x10^3/uL (130-400); RED BLOOD COUNT 2.63 x10^6/uL (4.38-5.82); RED CELL DISTRIBUTION WIDTH 17.2 % (9.4-14.8)
[2017-07-21 05:26] LABS: ALANINE AMINOTRANSFERASE 53 U/L (12-78); ALKALINE PHOSPHATASE 132 U/L (45-117); BILIRUBIN,TOTAL 0.4 mg/dL (0.2-1.0); CREATININE 0.64 mg/dL (0.7-1.3); TOTAL PROTEIN 6.4 g/dL (6.4-8.2)
[2017-07-21 05:30] VITALS: BP 108/65
[2017-07-21] MEDS: FAMOTIDINE 20 MG/2 ML IVPush SCH ×2 (09:30→20:36)
[2017-07-21] MEDS ORDERED: MIDAZOLAM 1 MG/ML, 2ML ONE (09:36)
[2017-07-21] MEDS ORDERED: VECURONIUM 10 MG ONE (09:37)
[2017-07-21] MEDS ORDERED: FENTANYL PF 100 MCG/2ML IVPush ONE (10:00)
[2017-07-21] MEDS ORDERED: MIDAZOLAM 1 MG/ML, 5ML IVPush ONE (10:00)
[2017-07-21] MEDS ORDERED: VECURONIUM 10 MG IVPush ONE (10:00)
[2017-07-21] MEDS: SENNOSIDES 8.6 MG TABLET PO SCH ×2 (10:28→20:42)
[2017-07-21] MEDS: FERROUS SULFATE 220 MG/5 ML ORAL SOL NG SCH ×3 (10:28→20:36)
[2017-07-21] MEDS: THIAMINE 100MG TABLET PO SCH (10:28)
[2017-07-21] MEDS: MUPIROCIN OINT 2%, 22GM NAS SCH ×2 (10:30→20:36)
[2017-07-21] MEDS: FOLIC ACID 1 MG TABLET PO SCH (10:30)
[2017-07-21] MEDS: MULTIVITAMIN LIQUID NG SCH (10:32)
[2017-07-21] MEDS: LEVETIRACETAM 1,000 MG in SODIUM CHLORIDE 0.9% 100 ML IV SCH ×2 (11:18→20:36)
[2017-07-21] MEDS: INSULIN LISPRO 100 UNITS/ML, PEN SQ-INSULIN SCH ×3 (11:23→20:42)
[2017-07-21] MEDS: CEFTRIAXONE 2 GM in DEXTROSE 5% 50 ML IV SCH (13:27)
[2017-07-22] MEDS: SCOPOLAMINE PATCH, 1.5MG PATCH.TD72 TD SCH (02:37)
[2017-07-22] MEDS: INSULIN LISPRO 100 UNITS/ML, PEN SQ-INSULIN SCH ×3 (07:00→21:00)
[2017-07-22] MEDS: FAMOTIDINE 20 MG/2 ML IVPush SCH ×2 (08:50→21:23)
[2017-07-22] MEDS: MUPIROCIN OINT 2%, 22GM NAS SCH ×2 (08:50→21:23)
[2017-07-22] MEDS: FERROUS SULFATE 220 MG/5 ML ORAL SOL NG SCH ×3 (09:00→21:24)
[2017-07-22] MEDS: FOLIC ACID 1 MG TABLET PO SCH (09:00)
[2017-07-22] MEDS: MULTIVITAMIN LIQUID NG SCH (09:00)
[2017-07-22] MEDS: THIAMINE 100MG TABLET PO SCH (09:00)
[2017-07-22] MEDS: SENNOSIDES 8.6 MG TABLET PO SCH ×2 (09:00→21:24)
[2017-07-22] MEDS: LEVETIRACETAM 1,000 MG in SODIUM CHLORIDE 0.9% 100 ML IV SCH ×2 (09:05→23:02)
[2017-07-22] MEDS ORDERED: MIDAZOLAM 1 MG/ML, 5ML ONE (13:08)
[2017-07-22] MEDS ORDERED: FENTANYL PF 100 MCG/2ML ONE (13:08)
[2017-07-22] MEDS: ENOXAPARIN 60 MG/0.6 ML SQ SCH ×2 (14:25→23:35)
[2017-07-22] MEDS: CEFTRIAXONE 2 GM in DEXTROSE 5% 50 ML IV SCH (14:25)
[2017-07-23] MEDS: INSULIN LISPRO 100 UNITS/ML, PEN SQ-INSULIN SCH ×4 (02:07→21:00)
[2017-07-23 04:38] LABS: BASOPHILS # (AUTO) 0.11 x10^3/uL (0-0.1); BASOPHILS % (AUTO) 2 % (0-1); EOSINOPHILS # (AUTO) 0.28 x10^3/uL (0-0.4); EOSINOPHILS % (AUTO) 5 % (1-7); LYMPHOCYTES % (AUTO) 16 % (22-44); MD NO; MEAN CORPUSCULAR HGB CONC 33.6 g/dL (33.2-36.2); MEAN CORPUSCULAR VOLUME 92.4 fL (81-97); MEAN PLATELET VOLUME 7.6 fL (7.4-10.4); MONOCYTES # (AUTO) 0.42 x10^3/uL (0.2-0.8); MONOCYTES % (AUTO) 8 % (2-9); NEUTROPHILS # (AUTO) 3.81 x10^3/uL (1.8-6.8); NEUTROPHILS % (AUTO) 69 % (42-75); PLATELET COUNT 543 x10^3/uL (130-400); RED BLOOD COUNT 2.58 x10^6/uL (4.38-5.82); RED CELL DISTRIBUTION WIDTH 17.4 % (9.4-14.8)
[2017-07-23 04:49] LABS: ALANINE AMINOTRANSFERASE 39 U/L (12-78); ALBUMIN 2.2 g/dL (3.4-5.0); ANION GAP 8 mmol/L (5-15); CALCIUM 8.2 mg/dL (8.5-10.1); CHLORIDE 104 mmol/L (98-107); CREATININE 0.61 mg/dL (0.7-1.3)
[2017-07-23 04:51] LABS: ALKALINE PHOSPHATASE 124 U/L (45-117); BILIRUBIN,TOTAL 0.2 mg/dL (0.2-1.0); TOTAL PROTEIN 6.5 g/dL (6.4-8.2)
[2017-07-23] MEDS: MUPIROCIN OINT 2%, 22GM NAS SCH ×2 (09:51→21:52)
[2017-07-23] MEDS: FAMOTIDINE 20 MG/2 ML IVPush SCH ×2 (09:51→23:07)
[2017-07-23] MEDS: LEVETIRACETAM 1,000 MG in SODIUM CHLORIDE 0.9% 100 ML IV SCH ×2 (09:51→21:52)
[2017-07-23] MEDS: FERROUS SULFATE 220 MG/5 ML ORAL SOL NG SCH ×3 (09:52→21:52)
[2017-07-23] MEDS: SENNOSIDES 8.6 MG TABLET PO SCH ×2 (09:52→21:52)
[2017-07-23] MEDS: FOLIC ACID 1 MG TABLET PO SCH (09:52)
[2017-07-23] MEDS: THIAMINE 100MG TABLET PO SCH (09:52)
[2017-07-23] MEDS: MULTIVITAMIN LIQUID NG SCH (09:52)
[2017-07-23] MEDS: CEFTRIAXONE 2 GM in DEXTROSE 5% 50 ML IV SCH (13:55)
[2017-07-24] MEDS: INSULIN LISPRO 100 UNITS/ML, PEN SQ-INSULIN SCH ×3 (02:52→15:12)
[2017-07-24 04:32] LABS: BASOPHILS # (AUTO) 0.09 x10^3/uL (0-0.1); BASOPHILS % (AUTO) 2 % (0-1); EOSINOPHILS # (AUTO) 0.37 x10^3/uL (0-0.4); EOSINOPHILS % (AUTO) 6 % (1-7); LYMPHOCYTES # (AUTO) 0.95 x10^3/uL (1-3.4); LYMPHOCYTES % (AUTO) 16 % (22-44); MD NO; MEAN CORPUSCULAR HEMOGLOBIN 31.5 pg (27.5-34.5); MEAN CORPUSCULAR HGB CONC 33.9 g/dL (33.2-36.2); MEAN CORPUSCULAR VOLUME 93.1 fL (81-97); MEAN PLATELET VOLUME 7.8 fL (7.4-10.4); MONOCYTES # (AUTO) 0.54 x10^3/uL (0.2-0.8); MONOCYTES % (AUTO) 9 % (2-9); NEUTROPHILS # (AUTO) 4.12 x10^3/uL (1.8-6.8); NEUTROPHILS % (AUTO) 68 % (42-75); PLATELET COUNT 515 x10^3/uL (130-400); RED BLOOD COUNT 2.87 x10^6/uL (4.38-5.82); RED CELL DISTRIBUTION WIDTH 17.6 % (9.4-14.8)
[2017-07-24 04:38] LABS: ALBUMIN 2.2 g/dL (3.4-5.0); ANION GAP 6 mmol/L (5-15); CALCIUM 8.3 mg/dL (8.5-10.1); CHLORIDE 103 mmol/L (98-107)
[2017-07-24 04:42] LABS: ALANINE AMINOTRANSFERASE 34 U/L (12-78); ALKALINE PHOSPHATASE 118 U/L (45-117); BILIRUBIN,TOTAL 0.3 mg/dL (0.2-1.0)
[2017-07-24] MEDS: FERROUS SULFATE 220 MG/5 ML ORAL SOL NG SCH ×3 (09:10→21:52)
[2017-07-24] MEDS: FAMOTIDINE 20 MG/2 ML IVPush SCH (09:10)
[2017-07-24] MEDS: THIAMINE 100MG TABLET PO SCH (09:10)
[2017-07-24] MEDS: MUPIROCIN OINT 2%, 22GM NAS SCH ×2 (09:10→21:52)
[2017-07-24] MEDS: MULTIVITAMIN LIQUID NG SCH (09:10)
[2017-07-24] MEDS: FOLIC ACID 1 MG TABLET PO SCH (09:10)
[2017-07-24] MEDS: SENNOSIDES 8.6 MG TABLET PO SCH ×2 (09:10→20:46)
[2017-07-24] MEDS: LEVETIRACETAM 1,000 MG in SODIUM CHLORIDE 0.9% 100 ML IV SCH ×2 (10:30→21:51)
[2017-07-24] MEDS: CEFTRIAXONE 2 GM in DEXTROSE 5% 50 ML IV SCH (15:10)
[2017-07-24] MEDS ORDERED: RANITIDINE 25 MG/ML, 2ML IVPush SCH (21:30)
[2017-07-25] MEDS: RANITIDINE 50 MG in SODIUM CHLORIDE 0.9% 100 ML IV SCH ×4 (03:58→22:03)
[2017-07-25] MEDS: SCOPOLAMINE PATCH, 1.5MG PATCH.TD72 TD SCH (03:59)
[2017-07-25 04:11] LABS: BASOPHILS # (AUTO) 0.05 x10^3/uL (0-0.1); BASOPHILS % (AUTO) 1 % (0-1); EOSINOPHILS # (AUTO) 0.45 x10^3/uL (0-0.4); EOSINOPHILS % (AUTO) 9 % (1-7); LYMPHOCYTES # (AUTO) 1.06 x10^3/uL (1-3.4); LYMPHOCYTES % (AUTO) 21 % (22-44); MD NO; MEAN CORPUSCULAR HEMOGLOBIN 30.4 pg (27.5-34.5); MEAN CORPUSCULAR HGB CONC 32.8 g/dL (33.2-36.2); MEAN CORPUSCULAR VOLUME 92.7 fL (81-97); MEAN PLATELET VOLUME 7.7 fL (7.4-10.4); MONOCYTES # (AUTO) 0.45 x10^3/uL (0.2-0.8); MONOCYTES % (AUTO) 9 % (2-9); NEUTROPHILS # (AUTO) 2.96 x10^3/uL (1.8-6.8); NEUTROPHILS % (AUTO) 60 % (42-75); PLATELET COUNT 429 x10^3/uL (130-400); RED BLOOD COUNT 2.86 x10^6/uL (4.38-5.82)
[2017-07-25 04:23] LABS: ALANINE AMINOTRANSFERASE 31 U/L (12-78); ALBUMIN 2.1 g/dL (3.4-5.0); ANION GAP 6 mmol/L (5-15); CALCIUM 8.3 mg/dL (8.5-10.1); CHLORIDE 104 mmol/L (98-107); CREATININE 0.46 mg/dL (0.7-1.3)
[2017-07-25 04:25] LABS: ALKALINE PHOSPHATASE 104 U/L (45-117); BILIRUBIN,TOTAL 0.2 mg/dL (0.2-1.0); TOTAL PROTEIN 6.6 g/dL (6.4-8.2)
[2017-07-25] MEDS: LEVETIRACETAM 1,000 MG in SODIUM CHLORIDE 0.9% 100 ML IV SCH ×2 (09:06→21:30)
[2017-07-25] MEDS: MUPIROCIN OINT 2%, 22GM NAS SCH ×2 (09:08→21:30)
[2017-07-25] MEDS: FERROUS SULFATE 220 MG/5 ML ORAL SOL NG SCH ×3 (09:09→21:30)
[2017-07-25] MEDS: FOLIC ACID 1 MG TABLET PO SCH (09:10)
[2017-07-25] MEDS: MULTIVITAMIN LIQUID NG SCH (09:10)
[2017-07-25] MEDS: THIAMINE 100MG TABLET PO SCH (09:11)
[2017-07-25] MEDS: SENNOSIDES 8.6 MG TABLET PO SCH ×2 (09:11→21:37)
[2017-07-25] MEDS: CEFTRIAXONE 2 GM in DEXTROSE 5% 50 ML IV SCH (14:10)
[2017-07-26] MEDS: RANITIDINE 50 MG in SODIUM CHLORIDE 0.9% 100 ML IV SCH ×4 (04:35→21:54)
[2017-07-26] MEDS ORDERED: LIDOCAINE-MPF 1%, 2ML ENDO PRN (05:00)
[2017-07-26] MEDS: SENNOSIDES 8.6 MG TABLET PO SCH (07:37)
[2017-07-26] MEDS: THIAMINE 100MG TABLET PO SCH (07:37)
[2017-07-26] MEDS: FOLIC ACID 1 MG TABLET PO SCH (07:37)
[2017-07-26] MEDS: MULTIVITAMIN LIQUID NG SCH (07:38)
[2017-07-26] MEDS: MUPIROCIN OINT 2%, 22GM NAS SCH (07:38)
[2017-07-26] MEDS: FERROUS SULFATE 220 MG/5 ML ORAL SOL NG SCH ×3 (07:38→21:17)
[2017-07-26] MEDS: LEVETIRACETAM 1,000 MG in SODIUM CHLORIDE 0.9% 100 ML IV SCH (09:18)
[2017-07-26] MEDS: ENOXAPARIN 40 MG/0.4 ML SQ SCH (09:20)
[2017-07-27] MEDS: RANITIDINE 50 MG in SODIUM CHLORIDE 0.9% 100 ML IV SCH ×4 (03:55→21:24)
[2017-07-27] MEDS: THIAMINE 100MG TABLET PO SCH (09:08)
[2017-07-27] MEDS: FOLIC ACID 1 MG TABLET PO SCH (09:08)
[2017-07-27] MEDS: MULTIVITAMIN LIQUID NG SCH (09:08)
[2017-07-27] MEDS: FERROUS SULFATE 220 MG/5 ML ORAL SOL NG SCH ×3 (09:08→21:24)
[2017-07-27] MEDS: ENOXAPARIN 40 MG/0.4 ML SQ SCH (09:08)
[2017-07-27] MEDS ORDERED: ACETAMINOPHEN 650 MG/20.3 ML UDC ONE (15:47)
[2017-07-27] MEDS: ACETAMINOPHEN 650 MG/20.3 ML UDC PO PRN (15:51)
[2017-07-28] MEDS: RANITIDINE 50 MG in SODIUM CHLORIDE 0.9% 100 ML IV SCH (04:00)
[2017-07-28] MEDS: FERROUS SULFATE 220 MG/5 ML ORAL SOL NG SCH ×2 (08:23→16:33)
[2017-07-28] MEDS: MULTIVITAMIN LIQUID NG SCH (08:23)
[2017-07-28] MEDS: FOLIC ACID 1 MG TABLET PO SCH (08:23)
[2017-07-28] MEDS: ENOXAPARIN 40 MG/0.4 ML SQ SCH (08:23)
[2017-07-28] MEDS: THIAMINE 100MG TABLET PO SCH (08:24)
[2017-07-29] MEDS: FERROUS SULFATE 220 MG/5 ML ORAL SOL NG SCH ×4 (00:04→21:36)
[2017-07-29] MEDS: THIAMINE 100MG TABLET PO SCH (09:01)
[2017-07-29] MEDS: ENOXAPARIN 40 MG/0.4 ML SQ SCH (09:01)
[2017-07-29] MEDS: FOLIC ACID 1 MG TABLET PO SCH (09:01)
[2017-07-29] MEDS: MULTIVITAMIN LIQUID NG SCH (09:02)
[2017-07-29] MEDS ORDERED: SODIUM CHLORIDE 0.9% 250 ML IV SCH (14:00)
[2017-07-30 04:25] LABS: BASOPHILS # (AUTO) 0.04 x10^3/uL (0-0.1); BASOPHILS % (AUTO) 1 % (0-1); EOSINOPHILS # (AUTO) 0.76 x10^3/uL (0-0.4); EOSINOPHILS % (AUTO) 12 % (1-7); LYMPHOCYTES # (AUTO) 0.85 x10^3/uL (1-3.4); LYMPHOCYTES % (AUTO) 14 % (22-44); MD NO; MEAN CORPUSCULAR HEMOGLOBIN 31.4 pg (27.5-34.5); MEAN CORPUSCULAR HGB CONC 33.3 g/dL (33.2-36.2); MEAN CORPUSCULAR VOLUME 94.1 fL (81-97); MEAN PLATELET VOLUME 8.4 fL (7.4-10.4); MONOCYTES # (AUTO) 0.56 x10^3/uL (0.2-0.8); MONOCYTES % (AUTO) 9 % (2-9); NEUTROPHILS # (AUTO) 4.12 x10^3/uL (1.8-6.8); NEUTROPHILS % (AUTO) 65 % (42-75); PLATELET COUNT 301 x10^3/uL (130-400); RED BLOOD COUNT 2.96 x10^6/uL (4.38-5.82); RED CELL DISTRIBUTION WIDTH 17.2 % (9.4-14.8)
[2017-07-30 04:41] LABS: ALANINE AMINOTRANSFERASE 37 U/L (12-78); ALBUMIN 2.2 g/dL (3.4-5.0); ANION GAP 6 mmol/L (5-15); CALCIUM 8.7 mg/dL (8.5-10.1); CHLORIDE 94 mmol/L (98-107); CREATININE 0.39 mg/dL (0.7-1.3)
[2017-07-30 04:44] LABS: ALKALINE PHOSPHATASE 93 U/L (45-117); BILIRUBIN,TOTAL 0.3 mg/dL (0.2-1.0); TOTAL PROTEIN 7.4 g/dL (6.4-8.2)
[2017-07-30] MEDS: FERROUS SULFATE 220 MG/5 ML ORAL SOL NG SCH ×3 (11:13→20:29)
[2017-07-30] MEDS: THIAMINE 100MG TABLET PO SCH (11:13)
[2017-07-30] MEDS: FOLIC ACID 1 MG TABLET PO SCH (11:14)
[2017-07-30] MEDS: MULTIVITAMIN LIQUID NG SCH (11:14)
[2017-07-30] MEDS: ENOXAPARIN 40 MG/0.4 ML SQ SCH (14:34)
[2017-07-31] MEDS: ENOXAPARIN 40 MG/0.4 ML SQ SCH (09:32)
[2017-07-31] MEDS: THIAMINE 100MG TABLET PO SCH (09:32)
[2017-07-31] MEDS: FERROUS SULFATE 220 MG/5 ML ORAL SOL NG SCH ×3 (09:32→21:09)
[2017-07-31] MEDS: FOLIC ACID 1 MG TABLET PO SCH (09:32)
[2017-07-31] MEDS: MULTIVITAMIN LIQUID NG SCH (09:33)
[2017-08-01] MEDS: FOLIC ACID 1 MG TABLET PO SCH (08:51)
[2017-08-01] MEDS: THIAMINE 100MG TABLET PO SCH (08:52)
[2017-08-01] MEDS: SCOPOLAMINE PATCH, 1.5MG PATCH.TD72 TD SCH (08:53)
[2017-08-01] MEDS: MULTIVITAMIN LIQUID NG SCH (08:54)
[2017-08-01] MEDS: ENOXAPARIN 40 MG/0.4 ML SQ SCH (08:55)
[2017-08-01] MEDS: FERROUS SULFATE 220 MG/5 ML ORAL SOL NG SCH ×3 (08:55→21:01)
[2017-08-02 04:26] LABS: BASOPHILS # (AUTO) 0.14 x10^3/uL (0-0.1); BASOPHILS % (AUTO) 2 % (0-1); EOSINOPHILS % (AUTO) 20 % (1-7); LYMPHOCYTES # (AUTO) 0.88 x10^3/uL (1-3.4); LYMPHOCYTES % (AUTO) 12 % (22-44); MD NO; MEAN CORPUSCULAR HEMOGLOBIN 31.3 pg (27.5-34.5); MEAN CORPUSCULAR HGB CONC 33.1 g/dL (33.2-36.2); MEAN CORPUSCULAR VOLUME 94.5 fL (81-97); MEAN PLATELET VOLUME 7.8 fL (7.4-10.4); MONOCYTES # (AUTO) 0.72 x10^3/uL (0.2-0.8); MONOCYTES % (AUTO) 10 % (2-9); NEUTROPHILS # (AUTO) 4.22 x10^3/uL (1.8-6.8); NEUTROPHILS % (AUTO) 57 % (42-75); PLATELET COUNT 310 x10^3/uL (130-400); RED BLOOD COUNT 3.04 x10^6/uL (4.38-5.82); RED CELL DISTRIBUTION WIDTH 16.9 % (9.4-14.8)
[2017-08-02 04:40] LABS: ALANINE AMINOTRANSFERASE 49 U/L (12-78); ALBUMIN 2.3 g/dL (3.4-5.0); ANION GAP 7 mmol/L (5-15); CALCIUM 9.1 mg/dL (8.5-10.1); CHLORIDE 91 mmol/L (98-107); CREATININE 0.46 mg/dL (0.7-1.3)
[2017-08-02 04:42] LABS: ALKALINE PHOSPHATASE 101 U/L (45-117); BILIRUBIN,TOTAL 0.3 mg/dL (0.2-1.0); TOTAL PROTEIN 7.8 g/dL (6.4-8.2)
[2017-08-02] MEDS: ENOXAPARIN 40 MG/0.4 ML SQ SCH (10:13)
[2017-08-02] MEDS: FERROUS SULFATE 220 MG/5 ML ORAL SOL NG SCH ×3 (10:13→22:09)
[2017-08-02] MEDS: MULTIVITAMIN LIQUID NG SCH (10:13)
[2017-08-02] MEDS: THIAMINE 100MG TABLET PO SCH (10:13)
[2017-08-02] MEDS: FOLIC ACID 1 MG TABLET PO SCH (10:13)
[2017-08-03 05:29] LABS: ALBUMIN 2.5 g/dL (3.4-5.0); ANION GAP 7 mmol/L (5-15); CALCIUM 9.2 mg/dL (8.5-10.1); CHLORIDE 90 mmol/L (98-107); CREATININE 0.48 mg/dL (0.7-1.3)
[2017-08-03] MEDS: MULTIVITAMIN LIQUID NG SCH (09:49)
[2017-08-03] MEDS: THIAMINE 100MG TABLET PO SCH (09:49)
[2017-08-03] MEDS: FERROUS SULFATE 220 MG/5 ML ORAL SOL NG SCH ×3 (09:49→20:55)
[2017-08-03] MEDS: FOLIC ACID 1 MG TABLET PO SCH (09:49)
[2017-08-03] MEDS: ENOXAPARIN 40 MG/0.4 ML SQ SCH (09:49)
[2017-08-04 04:54] LABS: ALBUMIN 2.4 g/dL (3.4-5.0); ANION GAP 6 mmol/L (5-15); CALCIUM 9.1 mg/dL (8.5-10.1); CHLORIDE 92 mmol/L (98-107)
[2017-08-04 04:57] LABS: ALANINE AMINOTRANSFERASE 56 U/L (12-78); ALKALINE PHOSPHATASE 100 U/L (45-117); BILIRUBIN,TOTAL 0.4 mg/dL (0.2-1.0); CREATININE 0.52 mg/dL (0.7-1.3)
[2017-08-04 05:18] LABS: BASOPHILS # (AUTO) 0.03 x10^3/uL (0-0.1); BASOPHILS % (AUTO) 0 % (0-1); EOSINOPHILS # (AUTO) 1.59 x10^3/uL (0-0.4); EOSINOPHILS % (AUTO) 18 % (1-7); LYMPHOCYTES # (AUTO) 0.81 x10^3/uL (1-3.4); LYMPHOCYTES % (AUTO) 9 % (22-44); MD SCAN; MEAN CORPUSCULAR HEMOGLOBIN 31.4 pg (27.5-34.5); MEAN CORPUSCULAR HGB CONC 33.4 g/dL (33.2-36.2); MEAN CORPUSCULAR VOLUME 94.1 fL (81-97); MEAN PLATELET VOLUME 8.1 fL (7.4-10.4); MONOCYTES # (AUTO) 0.61 x10^3/uL (0.2-0.8); MONOCYTES % (AUTO) 7 % (2-9); NEUTROPHILS # (AUTO) 5.84 x10^3/uL (1.8-6.8); NEUTROPHILS % (AUTO) 66 % (42-75); PLATELET COUNT 239 x10^3/uL (130-400); RED CELL DISTRIBUTION WIDTH 16.9 % (9.4-14.8)
[2017-08-04] MEDS: MULTIVITAMIN LIQUID NG SCH (08:15)
[2017-08-04] MEDS: FERROUS SULFATE 220 MG/5 ML ORAL SOL NG SCH ×3 (08:15→20:34)
[2017-08-04] MEDS: FOLIC ACID 1 MG TABLET PO SCH (08:16)
[2017-08-04] MEDS: THIAMINE 100MG TABLET PO SCH (08:16)
[2017-08-04] MEDS: ENOXAPARIN 40 MG/0.4 ML SQ SCH (08:16)
[2017-08-04] MEDS ORDERED: AMIODARONE 900 MG in DEXTROSE 5% 482 ML IV PRN (09:30)
[2017-08-04] MEDS ORDERED: AMIODARONE 150 MG in DEXTROSE 5% 100 ML IV ONE (09:30)
[2017-08-04] MEDS ORDERED: FILTER 0.22 MICRON IV PRN (09:30)
[2017-08-04] MEDS: SCOPOLAMINE PATCH, 1.5MG PATCH.TD72 TD SCH (09:48)
[2017-08-04] MEDS ORDERED: HEPARIN 5,000 UNITS/ML, 1ML IV ONE (10:30)
[2017-08-04] MEDS: HEPARIN 25,000 UNITS/500ML PMX 500 ML IV PRN (11:35)
[2017-08-04] MEDS: SODIUM BICARBONATE 4.2%, 5ML NPPB SCH ×2 (13:23→18:00)
[2017-08-04] MEDS: HEPARIN 5,000 UNITS/ML, 1ML IV PRN (18:19)
[2017-08-04] MEDS: ACETAMINOPHEN 650 MG/20.3 ML UDC PO PRN (20:34)
[2017-08-05] MEDS: HEPARIN 5,000 UNITS/ML, 1ML IV PRN ×4 (02:26→23:12)
[2017-08-05 04:00] VITALS: BP 103/70
[2017-08-05 04:41] LABS: MEAN CORPUSCULAR HEMOGLOBIN 31.9 pg (27.5-34.5); MEAN CORPUSCULAR HGB CONC 33.8 g/dL (33.2-36.2); MEAN CORPUSCULAR VOLUME 94.5 fL (81-97); MEAN PLATELET VOLUME 7.9 fL (7.4-10.4); PLATELET COUNT 252 x10^3/uL (130-400); RED BLOOD COUNT 2.75 x10^6/uL (4.38-5.82); RED CELL DISTRIBUTION WIDTH 16.9 % (9.4-14.8)
[2017-08-05 04:48] LABS: ALBUMIN 2.3 g/dL (3.4-5.0); ANION GAP 8 mmol/L (5-15); CALCIUM 8.7 mg/dL (8.5-10.1); CHLORIDE 88 mmol/L (98-107)
[2017-08-05 04:55] LABS: BASOPHILS # (AUTO) 0.08 x10^3/uL (0-0.1); BASOPHILS % (AUTO) 1 % (0-1); EOSINOPHILS # (AUTO) 2.19 x10^3/uL (0-0.4); EOSINOPHILS % (AUTO) 22 % (1-7); LYMPHOCYTES # (AUTO) 1.17 x10^3/uL (1-3.4); LYMPHOCYTES % (AUTO) 12 % (22-44); MD SCAN; MONOCYTES # (AUTO) 0.69 x10^3/uL (0.2-0.8); MONOCYTES % (AUTO) 7 % (2-9); NEUTROPHILS # (AUTO) 5.73 x10^3/uL (1.8-6.8); NEUTROPHILS % (AUTO) 58 % (42-75)
[2017-08-05 05:00] LABS: ALANINE AMINOTRANSFERASE 60 U/L (12-78); ALKALINE PHOSPHATASE 95 U/L (45-117); BILIRUBIN,TOTAL 0.4 mg/dL (0.2-1.0); CREATININE 0.56 mg/dL (0.7-1.3); TOTAL PROTEIN 7.7 g/dL (6.4-8.2)
[2017-08-05] MEDS ORDERED: AMIODARONE 450 MG in DEXTROSE 5% 241 ML IV PRN (05:00)
[2017-08-05] MEDS: SODIUM BICARBONATE 4.2%, 5ML NPPB SCH ×4 (07:04→18:00)
[2017-08-05] MEDS: THIAMINE 100MG TABLET PO SCH (08:32)
[2017-08-05] MEDS: MULTIVITAMIN LIQUID NG SCH (08:32)
[2017-08-05] MEDS: FOLIC ACID 1 MG TABLET PO SCH (08:32)
[2017-08-05] MEDS: FERROUS SULFATE 220 MG/5 ML ORAL SOL NG SCH ×3 (08:32→21:15)
[2017-08-05] MEDS: AMIODARONE 200 MG TABLET PO SCH ×2 (09:24→21:15)
[2017-08-05] MEDS: HEPARIN 25,000 UNITS/500ML PMX 500 ML IV PRN (22:12)
[2017-08-06 05:51] LABS: MEAN CORPUSCULAR VOLUME 94.4 fL (81-97); MEAN PLATELET VOLUME 8.2 fL (7.4-10.4); PLATELET COUNT 276 x10^3/uL (130-400); RED BLOOD COUNT 2.79 x10^6/uL (4.38-5.82); RED CELL DISTRIBUTION WIDTH 16.8 % (9.4-14.8)
[2017-08-06 05:54] LABS: ALBUMIN 2.4 g/dL (3.4-5.0); ANION GAP 6 mmol/L (5-15); CALCIUM 8.9 mg/dL (8.5-10.1); CHLORIDE 87 mmol/L (98-107)
[2017-08-06 05:57] LABS: ALANINE AMINOTRANSFERASE 61 U/L (12-78); ALKALINE PHOSPHATASE 100 U/L (45-117); BILIRUBIN,TOTAL 0.3 mg/dL (0.2-1.0); CREATININE 0.48 mg/dL (0.7-1.3); TOTAL PROTEIN 7.7 g/dL (6.4-8.2)
[2017-08-06] MEDS: HEPARIN 5,000 UNITS/ML, 1ML IV PRN ×2 (05:59→12:32)
[2017-08-06] MEDS: SODIUM BICARBONATE 4.2%, 5ML NPPB SCH ×5 (07:28→23:30)
[2017-08-06 07:29] LABS: MD YES
[2017-08-06 07:40] LABS: BANDS%(MANUAL) 3 % (0-7); BASOS#(MANUAL) 0.26 x10^3/uL (0-0.1); BASOS% (MANUAL) 2 % (0-1); EOS#(MANUAL) 1.72 x10^3/uL (0.0-0.4); EOS% (MANUAL) 13 % (1-7); LYMPH#(MANUAL) 1.58 x10^3/uL (1-3.4); LYMPHS% (MANUAL) 12 % (22-44); MONOS#(MANUAL) 0.66 x10^3/uL (0.3-2.7); MONOS% (MANUAL) 5 % (2-9); SEG#(MANUAL) 8.58 x10^3/uL (1.8-6.8); SEGS% (MANUAL) 65 % (42-75)
[2017-08-06 07:43] LABS: ANISOCYTOSIS 1+; POLYCHROMASIA 1+
[2017-08-06 07:44] LABS: <PLATELET ESTIMATE> ADEQUATE; <PLT MORPHOLOGY> NORMAL PLT MORPH
[2017-08-06] MEDS: FERROUS SULFATE 220 MG/5 ML ORAL SOL NG SCH ×3 (09:29→21:37)
[2017-08-06] MEDS: MULTIVITAMIN LIQUID NG SCH (09:29)
[2017-08-06] MEDS: FOLIC ACID 1 MG TABLET PO SCH (09:29)
[2017-08-06] MEDS: THIAMINE 100MG TABLET PO SCH (09:30)
[2017-08-06] MEDS: AMIODARONE 200 MG TABLET PO SCH ×2 (09:30→21:37)
[2017-08-06] MEDS: LINEZOLID PMX 600MG/300ML 300 ML IV SCH ×2 (09:42→21:38)
[2017-08-06] MEDS: HEPARIN 25,000 UNITS/500ML PMX 500 ML IV PRN (20:08)
[2017-08-07 04:50] LABS: MEAN CORPUSCULAR HEMOGLOBIN 31.8 pg (27.5-34.5); MEAN CORPUSCULAR HGB CONC 34.2 g/dL (33.2-36.2); MEAN PLATELET VOLUME 7.6 fL (7.4-10.4); PLATELET COUNT 257 x10^3/uL (130-400); RED BLOOD COUNT 2.85 x10^6/uL (4.38-5.82)
[2017-08-07 05:02] LABS: ALBUMIN 2.4 g/dL (3.4-5.0); ANION GAP 4 mmol/L (5-15); CALCIUM 8.5 mg/dL (8.5-10.1); CHLORIDE 86 mmol/L (98-107)
[2017-08-07 05:07] LABS: ALANINE AMINOTRANSFERASE 57 U/L (12-78); ALKALINE PHOSPHATASE 98 U/L (45-117); BILIRUBIN,TOTAL 0.4 mg/dL (0.2-1.0); CREATININE 0.49 mg/dL (0.7-1.3); TOTAL PROTEIN 7.7 g/dL (6.4-8.2)
[2017-08-07 05:39] LABS: BASOPHILS # (AUTO) 0.04 x10^3/uL (0-0.1); BASOPHILS % (AUTO) 0 % (0-1); EOSINOPHILS # (AUTO) 2.21 x10^3/uL (0-0.4); EOSINOPHILS % (AUTO) 18 % (1-7); LYMPHOCYTES # (AUTO) 1.18 x10^3/uL (1-3.4); LYMPHOCYTES % (AUTO) 9 % (22-44); MD SCAN; MONOCYTES # (AUTO) 0.68 x10^3/uL (0.2-0.8); MONOCYTES % (AUTO) 5 % (2-9); NEUTROPHILS # (AUTO) 8.42 x10^3/uL (1.8-6.8); NEUTROPHILS % (AUTO) 67 % (42-75)
[2017-08-07] MEDS: SODIUM BICARBONATE 4.2%, 5ML NPPB SCH ×3 (10:03→19:20)
[2017-08-07] MEDS: APIXABAN 5 MG TABLET PO SCH ×2 (10:09→21:32)
[2017-08-07] MEDS: MULTIVITAMIN LIQUID NG SCH (10:09)
[2017-08-07] MEDS: FOLIC ACID 1 MG TABLET PO SCH (10:09)
[2017-08-07] MEDS: THIAMINE 100MG TABLET PO SCH (10:09)
[2017-08-07] MEDS: FERROUS SULFATE 220 MG/5 ML ORAL SOL NG SCH ×3 (10:09→21:39)
[2017-08-07] MEDS: AMIODARONE 200 MG TABLET PO SCH ×2 (10:09→21:31)
[2017-08-07] MEDS: LINEZOLID PMX 600MG/300ML 300 ML IV SCH ×2 (10:15→21:39)
[2017-08-07] MEDS: SCOPOLAMINE PATCH, 1.5MG PATCH.TD72 TD SCH (10:15)
[2017-08-07] MEDS ORDERED: SODIUM CHLORIDE 0.9%, 500ML IVBOLUS ONE (10:30)
[2017-08-08] MEDS: SODIUM BICARBONATE 4.2%, 5ML NPPB SCH ×4 (02:20→18:00)
[2017-08-08] MEDS: ACETAMINOPHEN 650 MG/20.3 ML UDC PO PRN ×2 (06:45→20:41)
[2017-08-08 07:55] LABS: ANION GAP 10 mmol/L (5-15); CHLORIDE 86 mmol/L (98-107); CREATININE 0.53 mg/dL (0.7-1.3)
[2017-08-08 07:56] LABS: ALANINE AMINOTRANSFERASE 59 U/L (12-78); ALBUMIN 2.4 g/dL (3.4-5.0)
[2017-08-08 07:57] LABS: ALKALINE PHOSPHATASE 98 U/L (45-117); BILIRUBIN,TOTAL 0.4 mg/dL (0.2-1.0); TOTAL PROTEIN 7.8 g/dL (6.4-8.2)
[2017-08-08 08:30] LABS: MEAN CORPUSCULAR HEMOGLOBIN 31.1 pg (27.5-34.5); MEAN CORPUSCULAR HGB CONC 33.3 g/dL (33.2-36.2); MEAN CORPUSCULAR VOLUME 93.4 fL (81-97); MEAN PLATELET VOLUME 7.6 fL (7.4-10.4); PLATELET COUNT 305 x10^3/uL (130-400); RED BLOOD COUNT 2.98 x10^6/uL (4.38-5.82)
[2017-08-08 08:32] LABS: BASOPHILS # (AUTO) 0.02 x10^3/uL (0-0.1); BASOPHILS % (AUTO) 0 % (0-1); EOSINOPHILS # (AUTO) 1.17 x10^3/uL (0-0.4); EOSINOPHILS % (AUTO) 5 % (1-7); LYMPHOCYTES # (AUTO) 0.51 x10^3/uL (1-3.4); LYMPHOCYTES % (AUTO) 2 % (22-44); MD SCAN; MONOCYTES # (AUTO) 0.71 x10^3/uL (0.2-0.8); MONOCYTES % (AUTO) 3 % (2-9); NEUTROPHILS # (AUTO) 20.58 x10^3/uL (1.8-6.8); NEUTROPHILS % (AUTO) 90 % (42-75)
[2017-08-08] MEDS: FERROUS SULFATE 220 MG/5 ML ORAL SOL NG SCH ×3 (09:41→20:41)
[2017-08-08] MEDS: MULTIVITAMIN LIQUID NG SCH (09:42)
[2017-08-08] MEDS: AMIODARONE 200 MG TABLET PO SCH ×2 (09:42→20:41)
[2017-08-08] MEDS: THIAMINE 100MG TABLET PO SCH (09:42)
[2017-08-08] MEDS: FOLIC ACID 1 MG TABLET PO SCH (09:42)
[2017-08-08] MEDS: APIXABAN 5 MG TABLET PO SCH ×2 (09:42→20:41)
[2017-08-08] MEDS: AMPICILLIN/SULBACTAM 3 GM in SODIUM CHLORIDE 0.9% 100 ML IV SCH ×3 (10:58→20:41)
[2017-08-08] MEDS: LINEZOLID PMX 600MG/300ML 300 ML IV SCH ×2 (11:33→20:42)
[2017-08-09] MEDS: SODIUM BICARBONATE 4.2%, 5ML NPPB SCH
[2017-08-09] MEDS: AMPICILLIN/SULBACTAM 3 GM in SODIUM CHLORIDE 0.9% 100 ML IV SCH ×4 (03:11→21:27)
[2017-08-09] MEDS: AMIODARONE 200 MG TABLET PO SCH ×2 (09:23→21:25)
[2017-08-09] MEDS: FOLIC ACID 1 MG TABLET PO SCH (09:23)
[2017-08-09] MEDS: MULTIVITAMIN LIQUID NG SCH (09:23)
[2017-08-09] MEDS: APIXABAN 5 MG TABLET PO SCH ×2 (09:23→21:25)
[2017-08-09] MEDS: THIAMINE 100MG TABLET PO SCH (09:23)
[2017-08-09] MEDS: FERROUS SULFATE 220 MG/5 ML ORAL SOL NG SCH ×3 (09:24→21:24)
[2017-08-09] MEDS: LINEZOLID PMX 600MG/300ML 300 ML IV SCH ×2 (10:06→22:13)
[2017-08-10] MEDS: AMPICILLIN/SULBACTAM 3 GM in SODIUM CHLORIDE 0.9% 100 ML IV SCH ×3 (03:38→18:07)
[2017-08-10] MEDS: APIXABAN 5 MG TABLET PO SCH ×2 (09:28→22:24)
[2017-08-10] MEDS: FOLIC ACID 1 MG TABLET PO SCH (09:28)
[2017-08-10] MEDS: AMIODARONE 200 MG TABLET PO SCH ×2 (09:28→22:24)
[2017-08-10] MEDS: SODIUM CHLORIDE 1 GM TABLET PO SCH ×2 (09:28→22:24)
[2017-08-10] MEDS: LINEZOLID PMX 600MG/300ML 300 ML IV SCH ×2 (09:36→22:24)
[2017-08-10] MEDS: FERROUS SULFATE 220 MG/5 ML ORAL SOL NG SCH ×3 (09:36→22:24)
[2017-08-10] MEDS: MULTIVITAMIN LIQUID NG SCH (09:36)
[2017-08-10] MEDS: SCOPOLAMINE PATCH, 1.5MG PATCH.TD72 TD SCH (09:54)
[2017-08-10] MEDS: THIAMINE 100MG TABLET PO SCH (09:54)
[2017-08-10 12:35] VITALS: BP 102/68
[2017-08-10 19:06] VITALS: BP 104/72
[2017-08-11] MEDS: AMPICILLIN/SULBACTAM 3 GM in SODIUM CHLORIDE 0.9% 100 ML IV SCH ×4 (00:44→18:31)
[2017-08-11 00:46] VITALS: BP 99/63
[2017-08-11 07:23] VITALS: BP 103/66
[2017-08-11] MEDS: FOLIC ACID 1 MG TABLET PO SCH (10:42)
[2017-08-11] MEDS: THIAMINE 100MG TABLET PO SCH (10:42)
[2017-08-11] MEDS: APIXABAN 5 MG TABLET PO SCH ×2 (10:42→22:26)
[2017-08-11] MEDS: AMIODARONE 200 MG TABLET PO SCH ×2 (10:43→22:26)
[2017-08-11] MEDS: SODIUM CHLORIDE 1 GM TABLET PO SCH ×2 (10:43→22:26)
[2017-08-11] MEDS: FERROUS SULFATE 220 MG/5 ML ORAL SOL NG SCH ×3 (10:43→22:27)
[2017-08-11] MEDS: MULTIVITAMIN LIQUID NG SCH (10:43)
[2017-08-11] MEDS: LINEZOLID PMX 600MG/300ML 300 ML IV SCH ×2 (10:47→22:26)
[2017-08-11 15:14] VITALS: BP 105/66
[2017-08-11 19:41] VITALS: BP 110/70
[2017-08-12] MEDS: AMPICILLIN/SULBACTAM 3 GM in SODIUM CHLORIDE 0.9% 100 ML IV SCH ×4 (00:55→18:21)
[2017-08-12 02:06] VITALS: BP 103/69
[2017-08-12 04:48] LABS: ANION GAP 4 mmol/L (5-15); CALCIUM 8.5 mg/dL (8.5-10.1); CHLORIDE 94 mmol/L (98-107); CREATININE 0.48 mg/dL (0.7-1.3)
[2017-08-12 04:52] LABS: MEAN CORPUSCULAR HEMOGLOBIN 32.1 pg (27.5-34.5); MEAN CORPUSCULAR HGB CONC 33.8 g/dL (33.2-36.2); MEAN CORPUSCULAR VOLUME 94.7 fL (81-97); MEAN PLATELET VOLUME 7.3 fL (7.4-10.4); PLATELET COUNT 315 x10^3/uL (130-400); RED BLOOD COUNT 2.64 x10^6/uL (4.38-5.82); RED CELL DISTRIBUTION WIDTH 17.8 % (9.4-14.8)
[2017-08-12 05:57] LABS: MD YES
[2017-08-12 05:58] LABS: EOS#(MANUAL) 3.33 x10^3/uL (0.0-0.4); EOS% (MANUAL) 30 % (1-7); LYMPH#(MANUAL) 1.22 x10^3/uL (1-3.4); LYMPHS% (MANUAL) 11 % (22-44); MONOS#(MANUAL) 0.33 x10^3/uL (0.3-2.7); MONOS% (MANUAL) 3 % (2-9); SEG#(MANUAL) 6.22 x10^3/uL (1.8-6.8); SEGS% (MANUAL) 56 % (42-75)
[2017-08-12 05:59] LABS: <PLATELET ESTIMATE> ADEQUATE; <PLT MORPHOLOGY> NORMAL PLT MORPH; ANISOCYTOSIS 1+
[2017-08-12 07:04] VITALS: BP 100/62
[2017-08-12] MEDS: FERROUS SULFATE 220 MG/5 ML ORAL SOL NG SCH ×3 (09:29→21:29)
[2017-08-12] MEDS: SODIUM CHLORIDE 1 GM TABLET PO SCH ×2 (09:29→21:27)
[2017-08-12] MEDS: AMIODARONE 200 MG TABLET PO SCH ×2 (09:29→21:28)
[2017-08-12] MEDS: APIXABAN 5 MG TABLET PO SCH ×2 (09:29→21:27)
[2017-08-12] MEDS: MULTIVITAMIN LIQUID NG SCH (09:30)
[2017-08-12] MEDS: FOLIC ACID 1 MG TABLET PO SCH (09:30)
[2017-08-12] MEDS: THIAMINE 100MG TABLET PO SCH (09:30)
[2017-08-12] MEDS: LINEZOLID PMX 600MG/300ML 300 ML IV SCH ×2 (10:18→22:07)
[2017-08-12] MEDS ORDERED: PROMETHAZINE 25MG TABLET ONE (10:38)
[2017-08-12 13:52] VITALS: BP 107/69
[2017-08-12 19:05] VITALS: BP 116/73
[2017-08-13] MEDS: AMPICILLIN/SULBACTAM 3 GM in SODIUM CHLORIDE 0.9% 100 ML IV SCH ×4 (00:24→20:15)
[2017-08-13 01:28] VITALS: BP 113/73
[2017-08-13 06:13] LABS: MEAN CORPUSCULAR HEMOGLOBIN 32.3 pg (27.5-34.5); MEAN CORPUSCULAR HGB CONC 33.8 g/dL (33.2-36.2); MEAN CORPUSCULAR VOLUME 95.3 fL (81-97); PLATELET COUNT 365 x10^3/uL (130-400); RED BLOOD COUNT 2.79 x10^6/uL (4.38-5.82); RED CELL DISTRIBUTION WIDTH 17.2 % (9.4-14.8)
[2017-08-13 06:26] LABS: ALBUMIN 2.3 g/dL (3.4-5.0); ANION GAP 8 mmol/L (5-15); CALCIUM 8.8 mg/dL (8.5-10.1); CHLORIDE 92 mmol/L (98-107)
[2017-08-13 06:29] LABS: BASOPHILS # (AUTO) 0.09 x10^3/uL (0-0.1); BASOPHILS % (AUTO) 1 % (0-1); EOSINOPHILS # (AUTO) 3.63 x10^3/uL (0-0.4); EOSINOPHILS % (AUTO) 21 % (1-7); LYMPHOCYTES # (AUTO) 1.01 x10^3/uL (1-3.4); LYMPHOCYTES % (AUTO) 6 % (22-44); MD SCAN; MONOCYTES # (AUTO) 0.82 x10^3/uL (0.2-0.8); MONOCYTES % (AUTO) 5 % (2-9); NEUTROPHILS # (AUTO) 11.79 x10^3/uL (1.8-6.8); NEUTROPHILS % (AUTO) 68 % (42-75)
[2017-08-13 06:30] LABS: ALANINE AMINOTRANSFERASE 59 U/L (12-78); ALKALINE PHOSPHATASE 90 U/L (45-117); BILIRUBIN,TOTAL 0.3 mg/dL (0.2-1.0); CREATININE 0.63 mg/dL (0.7-1.3); TOTAL PROTEIN 7.5 g/dL (6.4-8.2)
[2017-08-13 07:36] VITALS: BP 107/73
[2017-08-13] MEDS: FOLIC ACID 1 MG TABLET PO SCH (09:39)
[2017-08-13] MEDS: APIXABAN 5 MG TABLET PO SCH ×2 (09:39→21:24)
[2017-08-13] MEDS: MULTIVITAMIN LIQUID NG SCH (09:39)
[2017-08-13] MEDS: THIAMINE 100MG TABLET PO SCH (09:39)
[2017-08-13] MEDS: FERROUS SULFATE 220 MG/5 ML ORAL SOL NG SCH ×3 (09:39→21:24)
[2017-08-13] MEDS: AMIODARONE 200 MG TABLET PO SCH ×2 (10:05→21:24)
[2017-08-13] MEDS: LINEZOLID PMX 600MG/300ML 300 ML IV SCH ×2 (10:05→21:25)
[2017-08-13] MEDS: SODIUM CHLORIDE 1 GM TABLET PO SCH ×2 (10:05→21:24)
[2017-08-13] MEDS: SCOPOLAMINE PATCH, 1.5MG PATCH.TD72 TD SCH (10:06)
[2017-08-13 14:30] VITALS: BP 102/64
[2017-08-13 19:19] VITALS: BP 115/66
[2017-08-14 00:01] VITALS: BP 134/78
[2017-08-14] MEDS: AMPICILLIN/SULBACTAM 3 GM in SODIUM CHLORIDE 0.9% 100 ML IV SCH ×4 (02:32→20:38)
[2017-08-14 05:58] LABS: MEAN CORPUSCULAR HEMOGLOBIN 32.4 pg (27.5-34.5); MEAN CORPUSCULAR VOLUME 95.3 fL (81-97); MEAN PLATELET VOLUME 6.7 fL (7.4-10.4); PLATELET COUNT 344 x10^3/uL (130-400); RED CELL DISTRIBUTION WIDTH 17.2 % (9.4-14.8)
[2017-08-14 06:08] LABS: ANION GAP 10 mmol/L (5-15); CALCIUM 8.6 mg/dL (8.5-10.1); CHLORIDE 90 mmol/L (98-107)
[2017-08-14 06:11] LABS: CREATININE 0.55 mg/dL (0.7-1.3)
[2017-08-14 06:22] LABS: BASOPHILS # (AUTO) 0.02 x10^3/uL (0-0.1); BASOPHILS % (AUTO) 0 % (0-1); EOSINOPHILS # (AUTO) 2.41 x10^3/uL (0-0.4); EOSINOPHILS % (AUTO) 15 % (1-7); LYMPHOCYTES # (AUTO) 0.91 x10^3/uL (1-3.4); LYMPHOCYTES % (AUTO) 6 % (22-44); MD SCAN; MONOCYTES # (AUTO) 0.58 x10^3/uL (0.2-0.8); MONOCYTES % (AUTO) 4 % (2-9); NEUTROPHILS # (AUTO) 12.69 x10^3/uL (1.8-6.8); NEUTROPHILS % (AUTO) 76 % (42-75)
[2017-08-14 06:31] VITALS: BP 130/86
[2017-08-14] MEDS: SODIUM CHLORIDE 1 GM TABLET PO SCH ×2 (08:56→20:39)
[2017-08-14] MEDS: FOLIC ACID 1 MG TABLET PO SCH (08:56)
[2017-08-14] MEDS: MULTIVITAMIN LIQUID NG SCH (08:56)
[2017-08-14] MEDS: APIXABAN 5 MG TABLET PO SCH ×2 (08:56→20:39)
[2017-08-14] MEDS: FERROUS SULFATE 220 MG/5 ML ORAL SOL NG SCH ×3 (08:57→20:39)
[2017-08-14] MEDS: THIAMINE 100MG TABLET PO SCH (08:57)
[2017-08-14] MEDS: AMIODARONE 200 MG TABLET PO SCH ×2 (08:57→20:39)
[2017-08-14] MEDS: LINEZOLID PMX 600MG/300ML 300 ML IV SCH ×2 (10:27→22:05)
[2017-08-14] MEDS ORDERED: FUROSEMIDE 40 MG/4 ML IV ONE (10:30)
[2017-08-14 12:13] VITALS: BP 97/59
[2017-08-14] MEDS ORDERED: SODIUM CHLORIDE 0.9%, 500ML IVBOLUS ONE (14:00)
[2017-08-14 19:50] VITALS: BP 105/67
[2017-08-15 00:41] VITALS: BP 114/67
[2017-08-15] MEDS: AMPICILLIN/SULBACTAM 3 GM in SODIUM CHLORIDE 0.9% 100 ML IV SCH ×4 (02:23→21:33)
[2017-08-15 06:40] VITALS: BP 103/68
[2017-08-15] MEDS: MULTIVITAMIN LIQUID NG SCH (10:03)
[2017-08-15] MEDS: THIAMINE 100MG TABLET PO SCH (10:03)
[2017-08-15] MEDS: FERROUS SULFATE 220 MG/5 ML ORAL SOL NG SCH ×3 (10:03→21:32)
[2017-08-15] MEDS: FOLIC ACID 1 MG TABLET PO SCH (10:04)
[2017-08-15] MEDS: AMIODARONE 200 MG TABLET PO SCH ×2 (10:07→21:32)
[2017-08-15] MEDS: SODIUM CHLORIDE 1 GM TABLET PO SCH ×2 (10:08→21:32)
[2017-08-15] MEDS: APIXABAN 5 MG TABLET PO SCH ×2 (10:09→21:32)
[2017-08-15] MEDS: LINEZOLID PMX 600MG/300ML 300 ML IV SCH ×2 (10:14→22:28)
[2017-08-15] MEDS ORDERED: FUROSEMIDE 40 MG/4 ML IV ONE (10:30)
[2017-08-15 12:30] VITALS: BP 116/75
[2017-08-15 18:45] VITALS: BP 95/61
[2017-08-16 00:51] VITALS: BP 96/64
[2017-08-16] MEDS: AMPICILLIN/SULBACTAM 3 GM in SODIUM CHLORIDE 0.9% 100 ML IV SCH ×4 (03:24→20:59)
[2017-08-16 04:21] LABS: MEAN CORPUSCULAR HEMOGLOBIN 32.5 pg (27.5-34.5); MEAN CORPUSCULAR VOLUME 95.6 fL (81-97); MEAN PLATELET VOLUME 6.5 fL (7.4-10.4); PLATELET COUNT 245 x10^3/uL (130-400); RED BLOOD COUNT 2.27 x10^6/uL (4.38-5.82); RED CELL DISTRIBUTION WIDTH 17.7 % (9.4-14.8)
[2017-08-16 04:24] LABS: ALANINE AMINOTRANSFERASE 45 U/L (12-78); ANION GAP 10 mmol/L (5-15); CALCIUM 8.5 mg/dL (8.5-10.1); CHLORIDE 91 mmol/L (98-107); CREATININE 0.58 mg/dL (0.7-1.3)
[2017-08-16 04:27] LABS: ALKALINE PHOSPHATASE 75 U/L (45-117); BILIRUBIN,TOTAL 0.3 mg/dL (0.2-1.0); TOTAL PROTEIN 7.3 g/dL (6.4-8.2)
[2017-08-16 04:43] LABS: BASOPHILS # (AUTO) 0.02 x10^3/uL (0-0.1); BASOPHILS % (AUTO) 0 % (0-1); EOSINOPHILS # (AUTO) 0.97 x10^3/uL (0-0.4); EOSINOPHILS % (AUTO) 7 % (1-7); LYMPHOCYTES # (AUTO) 0.74 x10^3/uL (1-3.4); LYMPHOCYTES % (AUTO) 5 % (22-44); MD SCAN; MONOCYTES # (AUTO) 0.61 x10^3/uL (0.2-0.8); MONOCYTES % (AUTO) 4 % (2-9); NEUTROPHILS # (AUTO) 11.58 x10^3/uL (1.8-6.8); NEUTROPHILS % (AUTO) 83 % (42-75)
[2017-08-16 07:00] VITALS: BP 113/75
[2017-08-16] MEDS: MULTIVITAMIN LIQUID NG SCH (09:20)
[2017-08-16] MEDS: FOLIC ACID 1 MG TABLET PO SCH (09:20)
[2017-08-16] MEDS: AMIODARONE 200 MG TABLET PO SCH ×2 (09:21→20:59)
[2017-08-16] MEDS: FERROUS SULFATE 220 MG/5 ML ORAL SOL NG SCH ×3 (09:21→20:59)
[2017-08-16] MEDS: SCOPOLAMINE PATCH, 1.5MG PATCH.TD72 TD SCH (09:21)
[2017-08-16] MEDS: SODIUM CHLORIDE 1 GM TABLET PO SCH ×2 (09:21→20:58)
[2017-08-16] MEDS: THIAMINE 100MG TABLET PO SCH (09:22)
[2017-08-16] MEDS: LINEZOLID PMX 600MG/300ML 300 ML IV SCH ×2 (10:49→22:07)
[2017-08-16] MEDS: APIXABAN 5 MG TABLET PO SCH (10:51)
[2017-08-16] MEDS ORDERED: FUROSEMIDE 20 MG/2 ML IV ONE (11:00)
[2017-08-16 13:50] VITALS: BP 106/69
[2017-08-16 20:04] VITALS: BP 108/68
[2017-08-17 01:26] VITALS: BP 102/67
[2017-08-17] MEDS: AMPICILLIN/SULBACTAM 3 GM in SODIUM CHLORIDE 0.9% 100 ML IV SCH ×4 (03:22→22:33)
[2017-08-17 04:29] LABS: MEAN CORPUSCULAR HEMOGLOBIN 32.9 pg (27.5-34.5); MEAN CORPUSCULAR VOLUME 96.7 fL (81-97); MEAN PLATELET VOLUME 7.4 fL (7.4-10.4); PLATELET COUNT 245 x10^3/uL (130-400); RED BLOOD COUNT 2.34 x10^6/uL (4.38-5.82); RED CELL DISTRIBUTION WIDTH 17.5 % (9.4-14.8)
[2017-08-17 04:34] LABS: ANION GAP 8 mmol/L (5-15); CALCIUM 8.5 mg/dL (8.5-10.1); CHLORIDE 91 mmol/L (98-107); CREATININE 0.62 mg/dL (0.7-1.3)
[2017-08-17 04:37] LABS: ALANINE AMINOTRANSFERASE 44 U/L (12-78); ALKALINE PHOSPHATASE 76 U/L (45-117); BILIRUBIN,TOTAL 0.4 mg/dL (0.2-1.0); TOTAL PROTEIN 7.3 g/dL (6.4-8.2)
[2017-08-17 04:43] LABS: MD YES
[2017-08-17 04:44] LABS: <PLATELET ESTIMATE> ADEQUATE; <PLT MORPHOLOGY> NORMAL PLT MORPH; ANISOCYTOSIS 1+; BAND#(MANUAL) 0.38 x10^3/uL; BANDS%(MANUAL) 2 % (0-7); BASOS#(MANUAL) 0.19 x10^3/uL (0-0.1); BASOS% (MANUAL) 1 % (0-1); EOS#(MANUAL) 0.19 x10^3/uL (0.0-0.4); EOS% (MANUAL) 1 % (1-7); LYMPH#(MANUAL) 0.19 x10^3/uL (1-3.4); LYMPHS% (MANUAL) 1 % (22-44); MONOS#(MANUAL) 0.19 x10^3/uL (0.3-2.7); MONOS% (MANUAL) 1 % (2-9); SEG#(MANUAL) 17.77 x10^3/uL (1.8-6.8); SEGS% (MANUAL) 94 % (42-75)
[2017-08-17 04:45] LABS: OVALOCYTES 1+; POLYCHROMASIA 1+
[2017-08-17] MEDS: FERROUS SULFATE 220 MG/5 ML ORAL SOL NG SCH ×3 (10:28→22:33)
[2017-08-17] MEDS: THIAMINE 100MG TABLET PO SCH (10:28)
[2017-08-17] MEDS: SODIUM CHLORIDE 1 GM TABLET PO SCH ×2 (10:28→22:33)
[2017-08-17] MEDS: MULTIVITAMIN LIQUID NG SCH (10:28)
[2017-08-17] MEDS: FOLIC ACID 1 MG TABLET PO SCH (10:28)
[2017-08-17] MEDS: AMIODARONE 200 MG TABLET PO SCH ×2 (10:29→22:34)
[2017-08-17 10:49] VITALS: BP 101/67
[2017-08-17] MEDS: LINEZOLID PMX 600MG/300ML 300 ML IV SCH ×2 (11:09→23:11)
[2017-08-17 18:30] VITALS: BP 104/65
[2017-08-17 19:53] VITALS: BP 135/73
[2017-08-18] VITALS (7 sets, daily range): BP systolic 91–112; BP diastolic 56–72
[2017-08-18 04:48] LABS: ALBUMIN 1.8 g/dL (3.4-5.0); ANION GAP 7 mmol/L (5-15); CALCIUM 8.4 mg/dL (8.5-10.1); CHLORIDE 93 mmol/L (98-107)
[2017-08-18 04:51] LABS: ALANINE AMINOTRANSFERASE 37 U/L (12-78); ALKALINE PHOSPHATASE 70 U/L (45-117); BILIRUBIN,TOTAL 0.4 mg/dL (0.2-1.0); TOTAL PROTEIN 6.7 g/dL (6.4-8.2)
[2017-08-18] MEDS: AMPICILLIN/SULBACTAM 3 GM in SODIUM CHLORIDE 0.9% 100 ML IV SCH ×2 (05:09→09:42)
[2017-08-18 05:41] LABS: MEAN CORPUSCULAR HEMOGLOBIN 31.7 pg (27.5-34.5); MEAN CORPUSCULAR HGB CONC 33.1 g/dL (33.2-36.2); MEAN CORPUSCULAR VOLUME 95.7 fL (81-97); MEAN PLATELET VOLUME 7.3 fL (7.4-10.4); PLATELET COUNT 225 x10^3/uL (130-400); RED BLOOD COUNT 2.08 x10^6/uL (4.38-5.82)
[2017-08-18 06:15] LABS: BASOPHILS # (AUTO) 0.04 x10^3/uL (0-0.1); BASOPHILS % (AUTO) 0 % (0-1); EOSINOPHILS # (AUTO) 0.23 x10^3/uL (0-0.4); EOSINOPHILS % (AUTO) 2 % (1-7); LYMPHOCYTES # (AUTO) 0.73 x10^3/uL (1-3.4); LYMPHOCYTES % (AUTO) 6 % (22-44); MD SCAN; MONOCYTES # (AUTO) 0.64 x10^3/uL (0.2-0.8); MONOCYTES % (AUTO) 5 % (2-9); NEUTROPHILS # (AUTO) 10.92 x10^3/uL (1.8-6.8); NEUTROPHILS % (AUTO) 87 % (42-75)
[2017-08-18] MEDS: LINEZOLID PMX 600MG/300ML 300 ML IV SCH ×2 (09:42→21:05)
[2017-08-18] MEDS: MULTIVITAMIN LIQUID NG SCH (09:42)
[2017-08-18] MEDS: FERROUS SULFATE 220 MG/5 ML ORAL SOL NG SCH ×2 (09:42→18:32)
[2017-08-18] MEDS: AMIODARONE 200 MG TABLET PO SCH ×2 (09:43→21:06)
[2017-08-18] MEDS: THIAMINE 100MG TABLET PO SCH (09:43)
[2017-08-18] MEDS: FOLIC ACID 1 MG TABLET PO SCH (09:43)
[2017-08-18] MEDS: SODIUM CHLORIDE 1 GM TABLET PO SCH ×2 (09:43→21:05)
[2017-08-19 01:06] VITALS: BP 95/59
[2017-08-19] MEDS: FERROUS SULFATE 220 MG/5 ML ORAL SOL NG SCH ×2 (01:46→10:43)
[2017-08-19 07:07] VITALS: BP 101/62
[2017-08-19] MEDS: MULTIVITAMIN LIQUID NG SCH (10:43)
[2017-08-19] MEDS: SODIUM CHLORIDE 1 GM TABLET PO SCH ×2 (10:44→22:46)
[2017-08-19] MEDS: AMIODARONE 200 MG TABLET PO SCH (10:45)
[2017-08-19] MEDS: LINEZOLID PMX 600MG/300ML 300 ML IV SCH ×2 (10:45→22:46)
[2017-08-19] MEDS: FOLIC ACID 1 MG TABLET PO SCH (10:47)
[2017-08-19] MEDS: THIAMINE 100MG TABLET PO SCH (10:47)
[2017-08-19] MEDS: SCOPOLAMINE PATCH, 1.5MG PATCH.TD72 TD SCH (10:48)
[2017-08-19 14:30] VITALS: BP 101/63
[2017-08-19 18:39] VITALS: BP 113/73
[2017-08-20 01:00] VITALS: BP 114/69
[2017-08-20] MEDS: AMIODARONE 200 MG TABLET PO SCH (07:30)
[2017-08-20] MEDS: FOLIC ACID 1 MG TABLET PO SCH (07:30)
[2017-08-20] MEDS: SODIUM CHLORIDE 1 GM TABLET PO SCH ×2 (07:31→21:12)
[2017-08-20] MEDS: FERROUS SULFATE 220 MG/5 ML ORAL SOL NG SCH (07:31)
[2017-08-20] MEDS: MULTIVITAMIN LIQUID NG SCH (07:31)
[2017-08-20 08:00] VITALS: BP 112/73
[2017-08-20 14:03] VITALS: BP 110/67
[2017-08-20 18:24] VITALS: BP 97/63
[2017-08-21 00:27] VITALS: BP 94/61
[2017-08-21 08:14] VITALS: BP 97/60
[2017-08-21] MEDS: SODIUM CHLORIDE 1 GM TABLET PO SCH ×2 (08:32→20:02)
[2017-08-21] MEDS: FOLIC ACID 1 MG TABLET PO SCH (08:32)
[2017-08-21] MEDS: AMIODARONE 200 MG TABLET PO SCH (08:32)
[2017-08-21] MEDS: MULTIVITAMIN LIQUID NG SCH (08:33)
[2017-08-21] MEDS: FERROUS SULFATE 220 MG/5 ML ORAL SOL NG SCH (10:46)
[2017-08-21 12:19] VITALS: BP 106/66
[2017-08-21 18:32] VITALS: BP 100/58
[2017-08-21] MEDS: ACETAMINOPHEN 650 MG/20.3 ML UDC PO PRN (20:03)
[2017-08-22 00:14] VITALS: BP 114/65
[2017-08-22 06:56] VITALS: BP 103/66
[2017-08-22] MEDS: SODIUM CHLORIDE 1 GM TABLET PO SCH ×2 (09:00→20:59)
[2017-08-22] MEDS: SCOPOLAMINE PATCH, 1.5MG PATCH.TD72 TD SCH (09:00)
[2017-08-22] MEDS: AMIODARONE 200 MG TABLET PO SCH (10:26)
[2017-08-22] MEDS: FOLIC ACID 1 MG TABLET PO SCH (10:28)
[2017-08-22] MEDS: MULTIVITAMIN LIQUID NG SCH (10:28)
[2017-08-22] MEDS: FERROUS SULFATE 220 MG/5 ML ORAL SOL NG SCH (10:47)
[2017-08-22 15:20] VITALS: BP 146/77
[2017-08-22] MEDS ORDERED: MORPHINE SULFATE 4 MG/ML, 1ML ONE (15:51)
[2017-08-22] MEDS ORDERED: LORazepam 2 MG/ML, 1ML IVPush PRN (16:00)
[2017-08-22] MEDS ORDERED: morphine SULFATE 10 MG/ML, 1ML IVPush PRN (16:00)
[2017-08-22 18:49] VITALS: BP 112/72
[2017-08-22] MEDS: ACETAMINOPHEN 650 MG/20.3 ML UDC PO PRN (20:59)
[2017-08-23 00:35] VITALS: BP 103/65
[2017-08-23 04:34] LABS: MEAN CORPUSCULAR HEMOGLOBIN 32.6 pg (27.5-34.5); MEAN CORPUSCULAR HGB CONC 33.7 g/dL (33.2-36.2); MEAN CORPUSCULAR VOLUME 96.9 fL (81-97); MEAN PLATELET VOLUME 7.1 fL (7.4-10.4); PLATELET COUNT 298 x10^3/uL (130-400); RED BLOOD COUNT 2.48 x10^6/uL (4.38-5.82); RED CELL DISTRIBUTION WIDTH 17.4 % (9.4-14.8)
[2017-08-23 04:45] LABS: CHLORIDE 97 mmol/L (98-107)
[2017-08-23 04:49] LABS: ANION GAP 6 mmol/L (5-15); CALCIUM 8.2 mg/dL (8.5-10.1); CREATININE 0.49 mg/dL (0.7-1.3)
[2017-08-23 05:47] LABS: BASOPHILS # (AUTO) 0.08 x10^3/uL (0-0.1); BASOPHILS % (AUTO) 1 % (0-1); EOSINOPHILS # (AUTO) 2.04 x10^3/uL (0-0.4); EOSINOPHILS % (AUTO) 16 % (1-7); LYMPHOCYTES # (AUTO) 0.72 x10^3/uL (1-3.4); LYMPHOCYTES % (AUTO) 6 % (22-44); MD SCAN; MONOCYTES # (AUTO) 1.06 x10^3/uL (0.2-0.8); MONOCYTES % (AUTO) 8 % (2-9); NEUTROPHILS # (AUTO) 8.64 x10^3/uL (1.8-6.8); NEUTROPHILS % (AUTO) 69 % (42-75)
[2017-08-23 06:48] VITALS: BP 98/63
[2017-08-23] MEDS: FERROUS SULFATE 220 MG/5 ML ORAL SOL NG SCH (10:23)
[2017-08-23] MEDS: MULTIVITAMIN LIQUID NG SCH (10:23)
[2017-08-23] MEDS: SODIUM CHLORIDE 1 GM TABLET PO SCH ×2 (10:23→22:18)
[2017-08-23] MEDS: AMIODARONE 200 MG TABLET PO SCH (10:24)
[2017-08-23] MEDS: FOLIC ACID 1 MG TABLET PO SCH (10:24)
[2017-08-23 13:19] VITALS: BP 101/65
[2017-08-23 19:16] VITALS: BP 96/63
[2017-08-24 01:18] VITALS: BP 103/66
[2017-08-24 04:44] LABS: BASOPHILS # (AUTO) 0.03 x10^3/uL (0-0.1); BASOPHILS % (AUTO) 0 % (0-1); EOSINOPHILS # (AUTO) 1.74 x10^3/uL (0-0.4); EOSINOPHILS % (AUTO) 13 % (1-7); LYMPHOCYTES % (AUTO) 6 % (22-44); MD NO; MEAN CORPUSCULAR HEMOGLOBIN 32.8 pg (27.5-34.5); MEAN CORPUSCULAR HGB CONC 33.7 g/dL (33.2-36.2); MEAN CORPUSCULAR VOLUME 97.4 fL (81-97); MEAN PLATELET VOLUME 7.2 fL (7.4-10.4); MONOCYTES # (AUTO) 1.11 x10^3/uL (0.2-0.8); MONOCYTES % (AUTO) 8 % (2-9); NEUTROPHILS # (AUTO) 9.81 x10^3/uL (1.8-6.8); NEUTROPHILS % (AUTO) 73 % (42-75); PLATELET COUNT 329 x10^3/uL (130-400); RED BLOOD COUNT 2.36 x10^6/uL (4.38-5.82); RED CELL DISTRIBUTION WIDTH 16.9 % (9.4-14.8)
[2017-08-24 04:53] LABS: ALANINE AMINOTRANSFERASE 45 U/L (12-78); ANION GAP 5 mmol/L (5-15); CALCIUM 8.8 mg/dL (8.5-10.1); CHLORIDE 98 mmol/L (98-107); CREATININE 0.52 mg/dL (0.7-1.3)
[2017-08-24 04:54] LABS: ALKALINE PHOSPHATASE 83 U/L (45-117); BILIRUBIN,TOTAL 0.4 mg/dL (0.2-1.0)
[2017-08-24 06:45] VITALS: BP 93/60
[2017-08-24] MEDS: AMIODARONE 200 MG TABLET PO SCH (08:58)
[2017-08-24] MEDS: FOLIC ACID 1 MG TABLET PO SCH (08:58)
[2017-08-24] MEDS: SODIUM CHLORIDE 1 GM TABLET PO SCH ×2 (08:58→21:49)
[2017-08-24] MEDS: FERROUS SULFATE 220 MG/5 ML ORAL SOL NG SCH (08:58)
[2017-08-24] MEDS: MULTIVITAMIN LIQUID NG SCH (08:58)
[2017-08-24 12:44] VITALS: BP 99/64
[2017-08-24 21:55] VITALS: BP 101/63
[2017-08-25 01:55] VITALS: BP 109/67
[2017-08-25 04:47] LABS: MEAN CORPUSCULAR HEMOGLOBIN 32.6 pg (27.5-34.5); MEAN CORPUSCULAR HGB CONC 33.6 g/dL (33.2-36.2); MEAN PLATELET VOLUME 7.3 fL (7.4-10.4); PLATELET COUNT 350 x10^3/uL (130-400); RED BLOOD COUNT 2.63 x10^6/uL (4.38-5.82); RED CELL DISTRIBUTION WIDTH 17.8 % (9.4-14.8)
[2017-08-25 05:02] LABS: CHLORIDE 97 mmol/L (98-107)
[2017-08-25 05:06] LABS: CALCIUM 8.7 mg/dL (8.5-10.1); CREATININE 0.48 mg/dL (0.7-1.3)
[2017-08-25 05:09] LABS: ANION GAP 8 mmol/L (5-15)
[2017-08-25 05:15] LABS: BASOPHILS # (AUTO) 0.06 x10^3/uL (0-0.1); BASOPHILS % (AUTO) 1 % (0-1); EOSINOPHILS # (AUTO) 2.28 x10^3/uL (0-0.4); EOSINOPHILS % (AUTO) 18 % (1-7); LYMPHOCYTES # (AUTO) 0.96 x10^3/uL (1-3.4); LYMPHOCYTES % (AUTO) 8 % (22-44); MD SCAN; MONOCYTES # (AUTO) 1.02 x10^3/uL (0.2-0.8); MONOCYTES % (AUTO) 8 % (2-9); NEUTROPHILS # (AUTO) 8.16 x10^3/uL (1.8-6.8); NEUTROPHILS % (AUTO) 65 % (42-75)
[2017-08-25 06:37] VITALS: BP 101/72
== END 2017-08-25 10:35 | disposition expired | DRG 3 ==
LOC: ED 10:05 → EDIP 11:48 → ICU 14:24 → CCU 17:17 → 3NW 08-10 10:58
PROVIDERS: ADMIT Hospitalist; ATTEND Hospitalist
PROC: 0T9B70Z Drainage of Bladder with Drainage Device, Via Natural or Artificial Opening (ICD-10-PCS; principal; 2017-07-08)
PROC: 5A1955Z Respiratory Ventilation, Greater than 96 Consecutive Hours (ICD-10-PCS; 2017-07-08)
PROC: 02HV33Z Insertion of Infusion Device into Superior Vena Cava, Percutaneous Approach (ICD-10-PCS; 2017-07-08)
PROC: B548ZZA Ultrasonography of Superior Vena Cava, Guidance (ICD-10-PCS; 2017-07-08)
PROC: 0BH17EZ Insertion of Endotracheal Airway into Trachea, Via Natural or Artificial Opening (ICD-10-PCS; 2017-07-08)
PROC: 30233N1 Transfusion of Nonautologous Red Blood Cells into Peripheral Vein, Percutaneous Approach (ICD-10-PCS; 2017-07-11)
PROC: 0DH67UZ Insertion of Feeding Device into Stomach, Via Natural or Artificial Opening (ICD-10-PCS; 2017-07-14)
PROC: 0B9F8ZX Drainage of Right Lower Lung Lobe, Via Natural or Artificial Opening Endoscopic, Diagnostic (ICD-10-PCS; 2017-07-17)
PROC: 0B9D8ZX Drainage of Right Middle Lung Lobe, Via Natural or Artificial Opening Endoscopic, Diagnostic (ICD-10-PCS; 2017-07-17)
PROC: 5A09357 Assistance with Respiratory Ventilation, Less than 24 Consecutive Hours, Continuous Positive Airway Pressure (ICD-10-PCS; 2017-07-18)
PROC: 0B113F4 Bypass Trachea to Cutaneous with Tracheostomy Device, Percutaneous Approach (ICD-10-PCS; 2017-07-21)
PROC: 0B918ZZ Drainage of Trachea, Via Natural or Artificial Opening Endoscopic (ICD-10-PCS; 2017-07-21)
PROC: 0DH63UZ Insertion of Feeding Device into Stomach, Percutaneous Approach (ICD-10-PCS; 2017-07-22)
PROC: 0DB48ZX Excision of Esophagogastric Junction, Via Natural or Artificial Opening Endoscopic, Diagnostic (ICD-10-PCS; 2017-07-23)
PROC: 0DB68ZX Excision of Stomach, Via Natural or Artificial Opening Endoscopic, Diagnostic (ICD-10-PCS; 2017-07-23)
PROC: 0DB58ZX Excision of Esophagus, Via Natural or Artificial Opening Endoscopic, Diagnostic (ICD-10-PCS; 2017-07-23)
PROC: 0B9M8ZZ Drainage of Bilateral Lungs, Via Natural or Artificial Opening Endoscopic (ICD-10-PCS; 2017-08-03)
PROC: 0B978ZZ Drainage of Left Main Bronchus, Via Natural or Artificial Opening Endoscopic (ICD-10-PCS; 2017-08-03)
PROC: 0B938ZZ Drainage of Right Main Bronchus, Via Natural or Artificial Opening Endoscopic (ICD-10-PCS; 2017-08-03)
PROC: 0B9B8ZZ Drainage of Left Lower Lobe Bronchus, Via Natural or Artificial Opening Endoscopic (ICD-10-PCS; 2017-08-06)
PROC: 0B938ZZ Drainage of Right Main Bronchus, Via Natural or Artificial Opening Endoscopic (ICD-10-PCS; 2017-08-06)
PROC: 0B21XFZ Change Tracheostomy Device in Trachea, External Approach (ICD-10-PCS; 2017-08-14)
DX: A40.8 Other streptococcal sepsis (principal); I46.9 Cardiac arrest, cause unspecified; K72.91 Hepatic failure, unspecified with coma; E43 Unspecified severe protein-calorie malnutrition; J69.0 Pneumonitis due to inhalation of food and vomit; G93.1 Anoxic brain damage, not elsewhere classified; R65.21 Severe sepsis with septic shock; T17.590A Other foreign object in bronchus causing asphyxiation, initial encounter; J96.01 Acute respiratory failure with hypoxia; Z99.11 Dependence on respirator [ventilator] status; E87.2 Acidosis; Z68.1 Body mass index [BMI] 19.9 or less, adult; E87.1 Hypo-osmolality and hyponatremia; I48.92 Unspecified atrial flutter; J98.11 Atelectasis; R64 Cachexia; T17.890A Other foreign object in other parts of respiratory tract causing asphyxiation, initial encounter; D62 Acute posthemorrhagic anemia; J95.03 Malfunction of tracheostomy stoma; D64.9 Anemia, unspecified; E83.41 Hypermagnesemia; F09 Unspecified mental disorder due to known physiological condition; F10.10 Alcohol abuse, uncomplicated; H70.93 Unspecified mastoiditis, bilateral; I48.0 Paroxysmal atrial fibrillation; I50.9 Heart failure, unspecified; J32.9 Chronic sinusitis, unspecified; X58.XXXA Exposure to other specified factors, initial encounter; K21.9 Gastro-esophageal reflux disease without esophagitis; R91.1 Solitary pulmonary nodule; R19.7 Diarrhea, unspecified; R13.12 Dysphagia, oropharyngeal phase; K22.70 Barrett's esophagus without dysplasia; Z66 Do not resuscitate; K40.90 Unilateral inguinal hernia, without obstruction or gangrene, not specified as recurrent; K29.50 Unspecified chronic gastritis without bleeding; K44.9 Diaphragmatic hernia without obstruction or gangrene; Z87.01 Personal history of pneumonia (recurrent); Y93.89 Activity, other specified; Y92.89 Other specified places as the place of occurrence of the external cause; Y99.8 Other external cause status; Y83.8 Other surgical procedures as the cause of abnormal reaction of the patient, or of later complication, without mention of misadventure at the time of the procedure
CPT/HCPCS: 31622; 31624; 36415; 36569; 36600; 70450; 70553; 71045; 74018; 80048; 80053; 80202; 81001; 82040; 82140; 82550; 82803; 82805; 82962; 83605; 83735; 83880; 83930; 84100; 84132; 84300; 84443; 84478; 84484; 85014; 85018; 85025; 85027; 85520; 85610; 85730; 86850; 86900; 86923; 87040; 87070; 87075; 87081; 87086; 87102; 87205; 93005; 93306; 94002; 94003; 94640; 95819; 96361; 96365; 99152; 99153; A9585; B4087; J0295; J1644; J1650; J1940; J1953; J2020; J2250; J2543; J2704; J2780; J3010; J3370; J3475; J3480; J7060; J7070; P9047; J0282; J2270; J7030; J7040; J7050; J7120; P9016; S0028